=== PATIENT | male | born 1950 | race African-American/Black ===

== ENCOUNTER 2025-01-18 11:49 | Outpatient (AMB) | payer BC, SELFPAY ==
--- NOTE | 2025-01-18 12:22 | A.OFFVIS_ITS ---
Intake Visit Reasons: Parkinsonsim Allergies Penicillins Allergy (Unknown, Verified 01/13/25 15:50) Itching HPI Comments Details: This is a 74-year-old right-handed man with a history of hypertension diabetes and hyperlipidemia for more than 10 years who is here with a 2 year history of cognitive decline with short-term memory problems. In the last 1 year he has also started having shuffling gait and uses a cane at home since June and a walker outside. He has had several falls and tends to lose his balance. He reports some tremor in his hands but no tremors after starting meds. No trouble talking or swallowing. Sometimes he gets lightheaded dizzy. He has become somewhat slower in doing things but is still able to dress himself and take care of his activities of daily living. In July he saw a neurologist in [place] and was diagnosed with Parkinson's disease and started on carbidopa levodopa 25/100 x 3 times a day and physical therapy. He has been noted to be somewhat better with less shuffling and better mobility. No follow-up has been made for that so far. [facility] Medical History (Updated 01/18/25 @ 12:36 by Helena Moncada MD) Internal hemorrhoid Adenocarcinoma of prostate Type 2 diabetes mellitus Primary hypertension Class 1 obesity due to excess calories with body mass index (BMI) of 33.0 to 33.9 in adult Erectile dysfunction COVID-19 Mixed hyperlipidemia Occult blood positive stool Syncope and collapse Partial seizure disorder Surgical History (Updated 01/13/25 @ 15:47 by SINA Zayas) H/O colonoscopy Family History (Updated 01/13/25 @ 15:47 by SINA Zayas) Father Prostate cancer Review of Systems Const Reports frequent falls Eyes Reports blurry vision and Reports diplopia ENT Reports dizziness, Reports hearing loss, Reports neck pain and Reports disequilibrium Musc Reports abnormal gait and Reports neck pain Neuro Reports abnormal gait, Reports dizziness, Reports frequent falls, Reports memory loss, Reports tremor(s) and Reports disequilibrium Psych Reports memory loss Physical Exam Neuro Other: ?Mini Mental Status Exam Level of Consciousness:?Alert.? Orientation:?Knows correct year, month, date, day and season.?Knows correct city, county and state. Knows correct location and floor.? Registration:?Able to register 3 objects.? Attention:?Serial 7's performed accurately.? Recall:?Able to recall 3 out of 3 objects.? Language:?Normal spontaneous speech, fluency, repetition, naming, comprehension, reading, and writing.? Total Score:?30/30.? Neurological Abnormal neurological findings:??Bradykinesia with decreased facial expression. Walks with a walker with shuffling gait. No rigidity or tremor noted. Slowing of rapid alternating movements particularly on the left. MMS Score 20 7/30.? Mental Status:?Alert and oriented X 3 partially to time.?Normal attention, orientation, memory, and affect.? Cranial Nerves:?Pupils are equal, round and reactive to light. Fundoscopy shows normal disc bilaterally. External occular muscles are intact. Visual jeter are full, no ptosis. Face is symmetrical, no facial weakness or droop. Facial sensations are normal. Tongue protrudes in midline. Palate elevates symmetrically. Shoulder shrugging is normal.? Motor Examination:?Normal muscle tone, bulk and strength.?No atrophy or fasciculations.?No drift of the extended upper extremities.?Deep tendon reflexes are 2+.?Plantars are flexor.? Motor Strength:? Proximal Muscles (out of 5):?5 Distal Muscles (out of 5):?5 Neck Flexors (out of 5):?5 Neck Extensors (out of 5):?5 Deltoid (out of 5):?5 Biceps (out of 5):?5 Triceps (out of 5):?5 Serratus Anterior (out of 5):?5 Wrist Extensors (out of 5):?5 APB (out of 5):?5 Finger Spread (out of 5):?5 Ileopsoas (out of 5):?5 Quadriceps (out of 5):?5 Hamstrings (out of 5):?5 Tibialis Anterior (out of 5):?5 Peronei (out of 5):?5 EDB (out of 5):?5 Gastrocnemius (out of 5):?5 Straight Leg Raising:?90 degrees.? Sensory Exam:?Normal light touch, temperature, pinprick, vibration and joint-position sensations.?Rhomberg sign is absent.? Coordination:?No ataxia,?no titubation,?pdyovf-wx-cjkc, zeaz-gfmi-tikv test, and rapid alternating movements were normal.? Gait Exam:?Shuffling with a walker.? Cerebellar Signs:?Wwipew-gf-gdln and wooi-pa-xkxp is normal.?No dysdiadochokinesia.? Extrapyramidal System:?No tremor or?rigidity, reduced facial expressions.?Bradykinesia with bradyphrenia. Speech:?Normal,?no dysphasia or dysarthria.? General Examination GENERAL APPEARANCE:??normal,?in no acute distress?,?normal,?in no acute distress.? HEAD:??normocephalic,?atraumatic.? EYES:??sclera non-icteric,?conjunctiva clear.? EARS:??auditory canal clear,?tympanic membrane intact, clear.? NOSE:??no lesions.? ORAL CAVITY:??gums normal,?mucosa moist,?no lesions.? THROAT:??clear.? NECK/THYROID:??no cervical lymphadenopathy,?thyroid normal,?neck supple, full range of motion,?no carotid bruit.? SKIN:??no rashes,?no significant birthmarks.? HEART:??S1, S2 normal,?no murmurs?,?S1, S2 normal,?no murmurs.? LUNGS:??clear anteriorly and posteriorly?,?clear anteriorly and posteriorly.? CHEST:??no gross rib deformity,?clear to auscultation.? BACK:??normal exam of spine.? MUSCULOSKELETAL:??normal.? EXTREMITIES:??no edema?,?no edema.? PERIPHERAL PULSES:??normal.? PSYCH:??alert, oriented,?cognitive function intact,?cooperative with exam?,?alert, oriented,?cognitive function intact,?cooperative with exam.? Assessment & Plan Assessment & Plan (1) Parkinsonian syndrome: Code(s): G20 - Parkinson's disease Category: Medical (2) MCI (mild cognitive impairment) with memory loss: Code(s): G31.84 - Mild cognitive impairment of uncertain or unknown etiology Category: Medical Plan MMSE and MOCA in office with VR; MRI brain. Continue Carbidopa -Levodopa. Orders: Orders MR head/brain wo con 3 Weeks G20 - Parkinson's disease, G31.84 - Mild cognitive impairment of uncertain or unknown etiology Coding Level of Care Code New Pt Level 5 (04712) Diagnoses Parkinsonian syndrome G20 MCI (mild cognitive impairment) with memory loss G31.84
--- OUTSIDE RECORDS SUMMARY | 2025-01-18 15:11 | XMS_ITS | Encounter Summary ---
Author Organization [facility] Address [address] [place] [address] Care Team Providers Care Platform Supervisor Name Role Phone Scott Cooper MD Primary Care Provider [phone] Encounter Details Date Type Department Care Team (Late st Contact Info) Description 09/04/2024 Lab Requisition [facility] - Main Lab [address] [facility] [place] [address] Jonh Benitez MD [address] [place] [id number] Urinary tract infection, site not specified Social History Tobacco Use Types Packs/Day Years Used Date Smoking Tobacco: Never Smokeless Tobacco: Never Alcohol Use Standard Drinks/Week Comments No 0 (1 standard drink = 0.6 oz pur e alcohol) Health Literacy Answer Date Recorded How often do you need to hav e someone help you when you read instructions, pamphlets, or other written material from your doctor or pharmacy? Often 07/26/2024 Caregiver: How often do you need to have someone help you when you read instructions, pamphlets, or other written material from your doctor or pharmacy? Not on file 07/26/2024 Transportation Answer Date Recorded Has the lack of transportati on kept you from meetings, work, or from getting things needed for daily living? No Has the lack of transportati on kept you from medical appointments or from getting medications? No 07/11/2024 Social Isolation Answer Date Recorded How often do you feel lonely or isolated from th ose around you? Never 07/27/2024 Food Risk Answer Date Recorded Within the past 12 months we worried whether our food would run out before we got money to buy more. Never true 07/15/2024 Within the past 12 months th e food we bought just didn't last and we didn't have money to get more. Never true 07/15/2024 Interpersonal Safety Answer Date Record ed Physical Abuse Unrecognized value 07/18/2024 Verbal Abuse Unrecognized value 07/18/2024 Sex and Gender Information Value Date Recorded Sex Assigned at Male 06/07/2024 3:25 PM EDT Legal Sex Male 8:48 PM EST Gender Identity Male 06/07/2024 3:25 PM EDT Sexual Orientation Straight 06/07/2024 3: 25 PM EDT documented as of this encounter Functional Status * Are you deaf or do you have serious difficulty hearing? Answer Date of Assessment Author No 06/10/2024 4:24 PM EDT Marion Aponte RN * Are you blind or do you have serious difficulty seeing, even when wearing glasses? Answer Date of Assessment Author No 06/10/2024 4:24 PM EDT Marion Aponte RN * Do you have serious difficulty walking or climbing stairs? Answer Date of Assessment Author No 06/10/2024 4:24 PM EDT Marion Aponte RN * Do you have serious difficulty dressing or bathing? Answer Date of Assessment Author No 06/10/2024 4:24 PM EDT Marion Aponte RN * Because of a physical, mental, or emotional condition, do you have serious difficulty doing errandsalone such as visiting the doctor? Answer Date of Assessment Author No 06/10/2024 4:24 PM EDT Marion Aponte RN documented as of this encounter Mental Status * Because of a physical, mental, or emotional condition, do you have serious difficulty concentrating, remembering, or making decisions? (5 years old or older) Answer Entry Date Author No 06/10/2024 4:24 PM EDT Marion Aponte RN documented in this encounter Plan of Treatment Upcoming Encounters Date Type Department Care Team (Late st Contact Info) Description 02/10/2025 2:30 PM EST Office Visit Endocrinology - [facility] [place], [place] [phone] Sobeida Hoff PA [address] [place] [address] 02/13/2025 3:15 PM EST Office Visit Internal Medicine - [address] [phone] Scott Cooper MD [address] [place] [address] documented as of this encounter Procedures Procedure Name Priority Date/Time Associated Diagnosis Comments URINALYSIS WITH REFLEX MICROSCOPIC AND CULTURE Routine 09/03/2024 2:00 PM EDT Urinary tract infection, site not specified LYMAN URINE CULTURE TUBE Routine 09/03/2024 2:00 PM EDT Urinary tract infection, site not specified URINALYSIS WITH REFLEX MICROSCOPIC AND CULTURE Routine 09/03/2024 2:00 PM EDT Urinary tract infection, site not specified CULTURE URINE Routine 09/03/2024 2:00 PM EDT Urinary tract infection, site not specified documented in this encounter Results * Culture urine (09/03/2024 2:00 PM EDT) Culture, Urine <10,000 CFU/mL gram negative bacilli, insignificant count, no further workup 09/05/2024 12:40 PM EDT [facility] Urine Urine specimen obtained by clean catch procedure / Unknown Non-blood Collection / Unknown 09/03/2024 2:00 PM EDT 09/04/2024 10:22 AM EDT us Jonh Benitez MD LAB MICROBIOLOGY - GENERAL FRANK BREWER Final Result [facility] [address] [place] [address], [place] [phone] * (ABNORMAL) Urinalysis with reflex microscopic and culture (09/03/2024 2:00 PM EDT) Specific [place] Urine 1.018 1.003 - 1.030 LAB URINALYSIS - AUTOMATED METHOD 09/04/2024 10:22 AM [facility] pH, Urine 6.0 5.0 - 8.0 pH LAB URINALYSIS - AUTOMATED METHOD 09/04/2024 10:22 AM [facility] Leukocytes, Urine Small(A) Negative LAB URINALYSIS - AUTOMATED METHOD 09/04/2024 10:22 AM [facility] Nitrite, Urine Negative Negative LAB URINALYSIS - AUTOMATED METHOD 09/04/2024 10:22 AM [facility] Protein, Urine Trace <=Trace mg/dL LAB URINALYSIS - AUTOMATED METHOD 09/04/2024 10:22 AM [facility] Glucose, Urine Negative Negative mg/dL LAB URINALYSIS - AUTOMATED METHOD 09/04/2024 10:22 AM [facility] Ketones, Urine Trace(A) Negative mg/dL LAB URINALYSIS - AUTOMATED METHOD 09/04/2024 10:22 AM [facility] Urobilinogen, Urine 1.0 0.2 - 1.0 mg/dL LAB URINALYSIS - AUTOMATED METHOD 09/04/2024 10:22 AM [facility] Bilirubin, Urine Small(A) Negative LAB URINALYSIS - AUTOMATED METHOD 09/04/2024 10:22 AM [facility] Blood, Urine Negative Negative LAB URINALYSIS - AUTOMATED METHOD 09/04/2024 10:22 AM [facility] RBC, Urine 1.3 0 - 4 /HPF LAB URINALYSIS - AUTOMATED METHOD 09/04/2024 10:22 AM [facility] WBC, Urine 11.9(H) 0 - 4 /HPF LAB URINALYSIS - AUTOMATED METHOD 09/04/2024 10:22 AM EDT [facility] Squamous Epithelial, Urine 49 0 - 60 /LPF LAB URINALYSIS - AUTOMATED METHOD 09/04/2024 10:22 AM EDT [facility] Bacteria, Urine Negative Negative /HPF LAB URINALYSIS - AUTOMATED METHOD 09/04/2024 10:22 AM EDT [facility] Hyaline Casts, Urine 10.8(H) 0 - 3 /LPF LAB URINALYSIS - AUTOMATED METHOD 09/04/2024 10:22 AM EDT [facility] Urine Urine specimen obtained by clean catch procedure / Unknown Non-blood Collection / Unknown 09/03/2024 2:00 PM EDT 09/04/2024 9:08 AM EDT us Jonh Benitez MD LAB URINE ORDERABLES Final Resu lt Performing Organization Address City/[facility]/ZIP Co de Phone Number [facility] [address] [place] [address], [place] [phone] * Lyman urine culture tube (09/03/2024 2:00 PM EDT) Extra Tube Hold for add-ons. 09/05/2024 10:01 AM EDT [facility] Comment:Auto resulted. Urine Urine specimen obtained by clean catch procedure / Unknown Non-blood Collection / Unknown 09/03/2024 2:00 PM EDT 09/04/2024 9:08 AM EDT us Jonh Benitez MD LAB URINE ORDERABLES Final Resu lt Performing Organization Address [facility]/ZIP Co de Phone Number [facility] [address] [place] [address], [place] [phone] documented in this encounter Visit Diagnoses Diagnosis Urinary tract infection, site not specified documented in this encounter Additional Health Concerns Assessment Noted Time PHQ-9 Depression Total Score: 0 07/28/19 9:05 AM EDT documented as of this encounter Care Teams Platform Supervisor Relationship Specialty Start Date End Date Scott Cooper MD [address] [place] [address] PCP - General Internal Medicine 04/05/24 documented as of this encounter
--- OUTSIDE RECORDS SUMMARY | 2025-01-18 15:11 | XMS_ITS | Encounter Summary ---
Author Organization [facility] Address [address] [place] [address] Care Team Providers Care Manager Safe Name Role Phone Scott Cooper MD Primary Care Provider [phone] Encounter Details Date Type Department Care Team (Late st Contact Info) Description 09/07/2024 Lab Requisition [facility] - Main Lab [address] [facility] [place] [address] Jonh Benitez MD [address] [place] [id number] Encounter for other general examination Social History Tobacco Use Types Packs/Day Years [...] 2:30 PM EST Office Visit Endocrinology - [place] [address] [place], [place] [phone] Sobeida Hoff PA [address] [place] [address] 02/13/2025 3:15 PM EST Office Visit Internal Medicine - [address] [phone] Scott Cooper MD [address] [place] [address] documented as of this encounter Procedures Procedure Name Priority Date/Time Associated Diagnosis Comments VITAMIN D 25 HYDROXY Routine 09/07/2024 4:53 AM EDT Encounter for other general examination THYROID STIMULATING HORMONE Routine 09/07/2024 4:53 AM EDT Encounter for other general examination VITAMIN B12 Routine 09/07/2024 4:53 AM EDT Encounter for other general examination COMPREHENSIVE METABOLIC PANEL Routine 09/07/2024 4:53 AM EDT Encounter for other general examination documented in this encounter Results * Thyroid stimulating hormone (09/07/2024 4:53 AM EDT) TSH 2.08 0.40 - 4.00 mcIU/mL LAB CHEMISTRY METHOD 09/07/2024 11:47 AM EDT [facility] Blood Venous blood specimen / Unknown Venipuncture / Unknown 09/07/2024 4:53 AM EDT 09/07/2024 9:23 AM EDT us Jonh Benitez MD LAB BLOOD ORDERABLES Final Resu lt [facility] [address] [place] [address], * Vitamin D 25 hydroxy (09/07/2024 4:53 AM EDT) Vit D, 25-Hydroxy 45.3 30.0 - 80.0 ng/mL LAB CHEMISTRY METHOD 09/07/2024 11:47 AM EDT [facility] Blood Venous blood specimen / Unknown Venipuncture / Unknown 09/07/2024 4:53 AM EDT 09/07/2024 9:23 AM EDT Jonh Benitez MD LAB BLOOD ORDERABLES Final Resu lt [facility] [address] [place] [address], [place] [phone] * Vitamin B12 (09/07/2024 4:53 AM EDT) Pathologist [facility] [place] Vitamin B-12 636 250 - 900 pcg/mL LAB CHEMISTRY METHOD 09/07/2024 11:24 AM EDT [facility] Blood Venous blood specimen / Unknown Venipuncture / Unknown 09/07/2024 4:53 AM EDT 09/07/2024 9:23 AM EDT Jonh Benitez MD LAB BLOOD ORDERABLES Final Resu lt [facility] [address] [place] [address], [place] [phone] * Comprehensive metabolic panel (09/07/2024 4:53 AM EDT) Pathologist [facility] [place] Sodium 138 133 - 145 mmol/L LAB CHEMISTRY METHOD 09/07/2024 11:25 AM EDT [facility] Potassium 4.3 3.5 - 5.5 mmol/L LAB CHEMISTRY METHOD 09/07/2024 11:25 AM EDT [facility] Chloride 102 96 - 110 mmol/L LAB CHEMISTRY METHOD 09/07/2024 11:25 AM EDT [facility] CO2 31 21 - 32 mmol/L LAB CHEMISTRY METHOD 09/07/2024 11:25 AM [facility] Anion Gap 5 3 - 11 LAB CHEMISTRY METHOD 09/07/2024 11:25 AM [facility] Glucose 92 70 - 100 mg/dL LAB CHEMISTRY METHOD 09/07/2024 11:25 AM [facility] BUN 16 5 - 25 mg/dL LAB CHEMISTRY METHOD 09/07/2024 11:25 AM [facility] Creatinine 0.82 0.70 - 1.30 mg/dL LAB CHEMISTRY METHOD 09/07/2024 11:25 AM [facility] eGFR 93 >=60 mL/min/1. 73m2 LAB CHEMISTRY METHOD 09/07/2024 11:25 AM [facility] Comment:Calculation based on the Chronic Kidney Disease Epidemiology Collaboration (CKD-EPI) equation refit without adjustment for race. BUN/Creatinine Ratio 19.5 LAB CHEMISTRY METHOD 09/07/2024 11:25 AM [facility] Calcium 9.4 8.5 - 10.5 mg/dL LAB CHEMISTRY METHOD 09/07/2024 11:25 AM [facility] AST (SGOT) 37 10 - 42 unit/L LAB CHEMISTRY METHOD 09/07/2024 11:25 AM [facility] ALT (SGPT) 40 10 - 60 unit/L LAB CHEMISTRY METHOD 09/07/2024 11:25 AM [facility] Alkaline Phosphatase 104 42 - 121 unit/L LAB CHEMISTRY METHOD 09/07/2024 11:25 AM [facility] Total Protein 6.4 6.0 - 8.0 g/dL LAB CHEMISTRY METHOD 09/07/2024 11:25 AM [facility] Albumin 3.3 3.2 - 5.0 g/dL LAB CHEMISTRY METHOD 09/07/2024 11:25 AM EDT [facility] Total Bilirubin 0.5 0.0 - 1.4 mg/dL LAB CHEMISTRY METHOD 09/07/2024 11:25 AM EDT [facility] Blood Venous blood specimen / Unknown Venipuncture / Unknown 09/07/2024 4:53 AM EDT 09/07/2024 9:23 AM EDT us Jonh Benitez MD LAB BLOOD ORDERABLES Final Resu lt [facility] [address] [place] [address], documented in this encounter Visit Diagnoses Diagnosis Encounter for other general examination documented in this encounter Additional Health Concerns Assessment Noted Time PHQ-9 Depression Total Score: 0 07/28/19 9:05 AM EDT documented as of this encounter Care Teams Manager Safe Relationship Specialty Start Date End Date Scott Cooper MD [address] [place] [address] PCP - General Internal Medicine 04/05/24 documented as of this encounter
--- OUTSIDE RECORDS SUMMARY | 2025-01-18 15:11 | XMS_ITS | Continuity of Care Document ---
Author Organization [facility] Address [address] [address] [place] [address] Phone [phone] Care Team Providers Care Client Experience Specialist Name Role Phone Scott Cooper M.D. Care Team Information Receive r [phone] Problems Active Problems Provider Date Diabetes mellitus Nick Machado M.D. Onset: 01/30/2022 Essential hypertension Nick Machado M.D. O nset: 01/30/2022 Social History Type Date Description Comments Sex Male Sex Unknown Lives With Daughter ETOH Use Denies alcohol use Tobacco Use Start: Unknown Patient has never smoked Allergies and adverse reactions Active Allergies Criticality Reaction Severity Comments Date Penicillin Unable to assess criticality 01/30/2022 Medications Active Medications SIG Qnty Indications Order ing Provider Date Olmesartan [id number] Tablets 1 by mouth twice per day Nick Machado M.D. 09/03/2022 Amlodipine [id number] Tablets 1 by mouth every day 90tabs Nick Machado M.D. 09/03/2022 Accu-Chek Fastclix LancetsMisc use 1 lancet 2 times a day 204units E11.9 Nick Machado M.D. 11/08/2021 Accu-Chek SmartviewStrips Use Twice Daily To Test BS as Directed 200units Nick Machado M.D. Atorvastatin Dqlsgej93pb Tablets Take 1 Tablet By Mouth Every Day Unknown [id number] Tablets Take 1 Tablet By Mouth Every Day Moe Haywood Metformin [id number] Tablets Take 2 Tablets By Mouth Twice A Day With Meals Unknown Vital Signs Date Vital Result Comment 09/03/2022 10:39am Height 73 inches 6'1 Weight 250.00 lb BMI (Body Mass Index) 33.0 kg/m2 Results Test Acquired Date Facility Test Result H/L Range Note Comprehensive Metabolic Panl 09/03/2022 [facility] Glucose 221 mg/dL High (70-99) BUN 16 mg/dL (8-23) Creatinine 1.1 mg/dL (0.7-1.2 ) Sodium 140 mmol/L (133-145 ) Potassium 4.3 mmol/L (3.6-5.2 ) Chloride 103 mmol/L (98-107) Bicarbonate 26 mmol/L (22-29) Anion Gap 11 (4-17) Albumin 4.4 GM/DL (3.4-4.8 ) Calcium 9.9 mg/dL (8.6-10. 5) Bilirubin,Total 0.5 mg/dL (0-1.2 ) Total Protein 6.9 GM/DL (6.2-8.2 ) Ag Ratio 1.8 Ast 14 U/L (0-40) Alk Phos 110 U/L (40-129) Alt 17 U/L (0-41) Estimated GFR Creatinine 75 ML/MIN/1.7 3M2 1 Complete Abc With Diff 09/03/2022 [facility] WBC 7.0 K/MM3 (4.0-11. 0) RBC 4.51 M/MM3 Low (4.70-6. 10) HGB 13.8 GM/DL (13.7-17 .1) HCT 39.1 % Low (40.5-50 .0) MCV 86.7 FL (80.0-94 .0) MCH 30.6 pg (27.0-34 .0) MCHC 35.3 g/dL (33.0-37 .0) PLT 232 K/MM3 (150-460 ) RDW-SD 42.8 FL (<47.0) MPV 10.1 FL (9.4-12. 4) Automated NRBC 0.0 #/100WBC'S Abs. NRBC 0.0 K/MM3 Neut # 4.2 K/MM3 (1.3-7.0 ) Lymph # 2.1 K/MM3 (0.8-3.1 ) Castro# 0.5 K/MM3 (0.4-1.3 ) Eo # 0.1 K/MM3 (0.0-0.4 ) Baso # 0.0 K/MM3 (0.0-0.1 ) Abs. Imm Gran 0.0 K/MM3 Neut 60.2 % (44-76) Lymph 29.6 % (15-43) Monocyte 7.6 % (4.5-10. 5) Eo 1.9 % (0-6) Baso 0.6 % (0-2) Imm Gran 0.1 % TSH With Reflex To FT4 09/03/2022 [facility] TSH With Reflex To FT4 1.90 uIU/mL (0.4-4.2 ) Hemoglobin A1c 09/03/2022 Inhouse Hemoglobin A1c 6.8% Glucose Fingerstick 09/03/2022 Inhouse Glucose Fingerstick 233 Hemoglobin A1c 05/05/2022 Inhouse Hemoglobin A1c 6.5% Glucose Fingerstick 05/05/2022 Inhouse Glucose Fingerstick 263 Comprehensive Metabolic Panl 01/30/2022 [facility] Glucose 144 mg/dL High (70-99) BUN 16 mg/dL (8-23) Creatinine 1.1 mg/dL (0.7-1.2 ) Sodium 141 mmol/L (133-145 ) Potassium 3.8 mmol/L (3.6-5.2 ) Chloride 102 mmol/L (98-107) Bicarbonate 29 mmol/L (22-29) Anion Gap 10 (4-17) Albumin 4.5 GM/DL (3.4-4.8 ) Calcium 9.8 mg/dL (8.6-10. 5) Bilirubin,Total 0.5 mg/dL (0-1.2 ) Total Protein 7.2 GM/DL (6.2-8.2 ) Ag Ratio 1.7 Ast 16 U/L (0-40) Alk Phos 112 U/L (40-129) Alt 18 U/L (0-41) Estimated GFR Creatinine 69 ML/MIN/1.7 3M2 2 Complete Abc With Diff 01/30/2022 [facility] WBC 8.8 K/MM3 (4.0-11. 0) RBC 4.87 M/MM3 (4.70-6. 10) HGB 14.5 GM/DL (13.7-17 .1) HCT 42.7 % (40.5-50 .0) MCV 87.7 FL (80.0-94 .0) MCH 29.8 pg (27.0-34 .0) MCHC 34.0 g/dL (33.0-37 .0) PLT 225 K/MM3 (150-460 ) RDW-SD 46.5 FL (<47.0) MPV 11.4 FL (9.4-12. 4) Automated NRBC 0.0 #/100WBC'S Abs. NRBC 0.0 K/MM3 Neut # 6.5 K/MM3 (1.3-7.0 ) Lymph # 1.6 K/MM3 (0.8-3.1 ) Castro# 0.6 K/MM3 (0.4-1.3 ) Eo # 0.1 K/MM3 (0.0-0.4 ) Baso # 0.0 K/MM3 (0.0-0.1 ) Abs. Imm Gran 0.0 K/MM3 Neut 74.0 % (44-76) Lymph 17.6 % (15-43) Monocyte 7.1 % (4.5-10. 5) Eo 0.9 % (0-6) Baso 0.3 % (0-2) Imm Gran 0.1 % TSH With Reflex To FT4 01/30/2022 [facility] TSH With Reflex To FT4 2.62 uIU/mL (0.4-4.2 ) Glucose Fingerstick 01/30/2022 Inhouse Glucose Fingerstick 148 Hemoglobin A1c 01/30/2022 Inhouse Hemoglobin A1c 6.5% 1 Creatinine based est imated glomerular filtration (eGFR) in adults is calculated using the [employer] recommended 2020 CKD-EPI equation. Estimates GFR from serum creatinine, age and sex. 2 Creatinine based est imated glomerular filtration (eGFR) in adults is calculated using the [employer] recommended 202 CKD-EPI equation. Estimates GFR from serum creatinine, age and sex. Medical Devices Description No Information Available Encounters Type Date Location Provider Dx Diagnosis Office Visit 09/03/2022 10:30a Main Office Nick Machado M.D. I10 Essential (primary) hypertension E11.9 Type 2 diabetes vincenzo itus without complications R42 Dizziness and giddin ess Assessments Date Code Description Provider 09/03/2022 I10 Essential (primary) hyperten beka Nick Machado M.D. 09/03/2022 E11.9 Type 2 diabetes mellitus without complications Nick Machado M.D. 09/03/2022 R42 Dizziness and giddiness Nick Machado M.D. Plan of Treatment 09/03/2022 - Nick Machado M.D.* I10 Essential (primary) hypertension * E11.9 Type 2 diabetes mellitus without complications * R42 Dizziness and giddiness * Functional Status Description No Information Available Mental Status Description No Information Available Referrals Description No Information Available
--- OUTSIDE RECORDS SUMMARY | 2025-01-18 15:11 | XMS_ITS | Encounter Summary ---
Author Organization [facility] Address [address] [place] [address] Care Team Providers Care Site Administrator Name Role Phone Scott Cooper MD Primary Care Provider [phone] Encounter Details Date Type Department Care Team (Late st Contact Info) Description 09/04/2024 Lab Requisition [facility] - Main Lab [address] [facility] [place] [address] Jonh Benitez MD [address] [place] [address] Encounter for other general examination Social History [...] 2:30 PM EST Office Visit Endocrinology - [place] [address] [place], [place] [phone] Sobeida Hoff PA [address] [place] [address] 02/13/2025 3:15 PM EST Office Visit Internal Medicine - [address] [phone] Scott Cooper MD [address] [place] [address] documented as of this encounter Procedures Procedure Name Priority Date/Time Associated Diagnosis Comments MANUAL DIFFERENTIAL - SYSMEX WAM Routine 09/04/2024 6:31 AM EDT Encounter for other general examination CBC WITH AUTO DIFFERENTIAL Routine 09/04/2024 6:31 AM EDT Encounter for other general examination CBC AND DIFFERENTIAL Routine 09/04/2024 6:31 AM EDT Encounter for other general examination MAGNESIUM Routine 09/04/2024 6:31 AM EDT Encounter for other general examination COMPREHENSIVE METABOLIC PANEL Routine 09/04/2024 6:31 AM EDT Encounter for other general examination documented in this encounter Results * (ABNORMAL) Manual differential (09/04/2024 6:31 AM EDT) Neutrophils % 61.0 % LAB HEMETOLOGY METHOD 09/04/2024 10:32 AM EDT [facility] Lymphocytes % 24.0 % LAB HEMETOLOGY METHOD 09/04/2024 10:32 AM EDT [facility] Monocytes % 12.0 % LAB HEMETOLOGY METHOD 09/04/2024 10:32 AM EDT [facility] Eosinophils % 2.0 % LAB HEMETOLOGY METHOD 09/04/2024 10:32 AM [facility] Basophils % 1.0 % LAB HEMETOLOGY METHOD 09/04/2024 10:32 AM [facility] Myelocytes % 1.0(H) % LAB HEMETOLOGY METHOD 09/04/2024 10:32 AM [facility] Neutrophils Absolute Manual 4.33 1.50 - 7.00 K/mcL LAB HEMETOLOGY METHOD 09/04/2024 10:32 AM [facility] Lymphocytes Absolute 1.70 1.00 - 5.00 K/mcL LAB HEMETOLOGY METHOD 09/04/2024 10:32 AM [facility] Monocytes Absolute Manual 0.85 0.20 - 1.00 K/mcL LAB HEMETOLOGY METHOD 09/04/2024 10:32 AM [facility] Eosinophils Absolute Manual 0.14 0.00 - 0.50 K/mcL LAB HEMETOLOGY METHOD 09/04/2024 10:32 AM [facility] Basophils Absolute Manual 0.07 0.00 - 0.20 K/mcL LAB HEMETOLOGY METHOD 09/04/2024 10:32 AM [facility] Myelocytes Absolute Manual 0.07(H) 0.00 - 0.00 K/mcL LAB HEMETOLOGY METHOD 09/04/2024 10:32 AM [facility] Rbc Morphology Consistent with indices Consistent with indices, Normal for LAB HEMETOLOGY METHOD 09/04/2024 10:32 AM [facility] Comment:RBC: Morphology agre es with CBC Platelet Morphology - WAM See Note(A) Normal LAB HEMETOLOGY METHOD 09/04/2024 10:32 AM [facility] Comment:PLT: Normal Blood Venous blood specimen / Unknown Venipuncture / Unknown 09/04/2024 6:31 AM EDT 09/04/2024 8:53 AM EDT us Jonh Benitez MD LAB BLOOD ORDERABLES Final Resu lt [facility] [address] [place] [address], * (ABNORMAL) CBC auto differential (09/04/2024 6:31 AM EDT) WBC 7.1 4.8 - 10.8 K/mcL LAB HEMETOLOGY METHOD 09/04/2024 10:32 AM EDT [facility] RBC 3.50(L) 4.50 - 5.50 M/mcL LAB [facility] Hemoglobin 10.3(L) 13.5 - 17.5 g/dL LAB HEMETOLOGY METHOD 09/04/2024 10:32 AM T [facility] Hematocrit 29.8(L) 42.0 - 54.0 % LAB HEMETOLOGY METHOD 09/04/2024 10:32 AM EDT [facility] MCV 84.9 79.0 - 98.0 FL LAB HEMETOLOGY METHOD 09/04/2024 10:32 AM EDT [facility] MCH 29.3 27.0 - 32.0 pcg LAB HEMETOLOGY METHOD 09/04/2024 10:32 AM EDT [facility] MCHC 34.6 32.0 - 37.0 g/dL LAB HEMETOLOGY METHOD 09/04/2024 10:32 AM EDT [facility] RDW 14.6 11.0 - 15.0 % LAB HEMETOLOGY METHOD 09/04/2024 10:32 AM [facility] Platelets 247 130 - 400 K/mcL LAB HEMETOLOGY METHOD 09/04/2024 10:32 AM EDT [facility] MPV 10.1 7.0 - 11.0 FL LAB HEMETOLOGY METHOD 09/04/2024 10:32 AM EDT [facility] NRBC 0.0 <1.0 % LAB HEMETOLOGY METHOD 09/04/2024 10:32 AM EDT [facility] NRBC Absolute 0.00 <0.10 K/mcL LAB HEMETOLOGY METHOD 09/04/2024 10:32 AM EDT [facility] Blood Venous blood specimen / Unknown Venipuncture / Unknown 09/04/2024 6:31 AM EDT 09/04/2024 8:53 AM EDT Jonh Benitez MD LAB BLOOD ORDERABLES Final Resu lt Performing Organization Address [facility]/ZIP Co de Phone Number [facility] [address] [place] [address], * Magnesium (09/04/2024 6:31 AM EDT) Magnesium 1.9 1.9 - 2.6 mg/dL LAB CHEMISTRY METHOD 09/04/2024 10:59 AM EDT [facility] Blood Venous blood specimen / Unknown Venipuncture / Unknown 09/04/2024 6:31 AM EDT 09/04/2024 8:53 AM EDT Jonh Benitez MD LAB BLOOD ORDERABLES Final Resu lt [facility] [address] [place] [address], [place] [phone] * (ABNORMAL) Comprehensive metabolic panel (09/04/2024 6:31 AM EDT) Sodium 138 133 - 145 mmol/L LAB CHEMISTRY METHOD 09/04/2024 11:08 AM EDT [facility] Potassium 4.2 3.5 - 5.5 mmol/L LAB CHEMISTRY METHOD 09/04/2024 11:08 AM [facility] Chloride 103 96 - 110 mmol/L LAB CHEMISTRY METHOD 09/04/2024 11:08 AM [facility] CO2 30 21 - 32 mmol/L LAB CHEMISTRY METHOD 09/04/2024 11:08 AM [facility] Anion Gap 5 3 - 11 LAB CHEMISTRY METHOD 09/04/2024 11:08 AM [facility] Glucose 110(H) 70 - 100 mg/dL LAB CHEMISTRY METHOD 09/04/2024 11:08 AM [facility] BUN 14 5 - 25 mg/dL LAB CHEMISTRY METHOD 09/04/2024 11:08 AM [facility] Creatinine 0.84 0.70 - 1.30 mg/dL LAB CHEMISTRY METHOD 09/04/2024 11:08 AM [facility] eGFR 92 >=60 mL/min/1. 73m2 LAB CHEMISTRY METHOD 09/04/2024 11:08 AM [facility] Comment:Calculation based on the Chronic Kidney Disease Epidemiology Collaboration (CKD-EPI) equation refit without adjustment for race. BUN/Creatinine Ratio 16.7 LAB CHEMISTRY METHOD 09/04/2024 11:08 AM [facility] Calcium 9.1 8.5 - 10.5 mg/dL LAB CHEMISTRY METHOD 09/04/2024 11:08 AM [facility] AST (SGOT) 66(H) 10 - 42 unit/L LAB CHEMISTRY METHOD 09/04/2024 11:08 AM [facility] ALT (SGPT) 20 10 - 60 unit/L LAB CHEMISTRY METHOD 09/04/2024 11:08 AM [facility] Alkaline Phosphatase 98 42 - 121 unit/L LAB CHEMISTRY METHOD 09/04/2024 11:08 AM [facility] Total Protein 6.1 6.0 - 8.0 g/dL LAB CHEMISTRY METHOD 09/04/2024 11:08 AM EDT [facility] Albumin 3.0(L) 3.2 - 5.0 g/dL LAB CHEMISTRY METHOD 09/04/2024 11:08 AM EDT [facility] Total Bilirubin 0.6 0.0 - 1.4 mg/dL LAB CHEMISTRY METHOD 09/04/2024 11:08 AM EDT [facility] Blood Venous blood specimen / Unknown Venipuncture / Unknown 09/04/2024 6:31 AM EDT 09/04/2024 8:53 AM EDT us Jonh Benitez MD LAB BLOOD ORDERABLES Final Resu lt [facility] [address] [place] [address], documented in this encounter Visit Diagnoses Diagnosis Encounter for other general examination documented in this encounter Additional Health Concerns Assessment Noted Time PHQ-9 Depression Total Score: 0 07/28/19 25 9:05 AM EDT documented as of this encounter Care Teams Site Administrator Relationship Specialty Start Date End Date Scott Cooper MD [address] [place] [id number] PCP - General Internal Medicine 04/05/24 documented as of this encounter
--- OUTSIDE RECORDS SUMMARY | 2025-01-18 15:11 | XMS_ITS | Encounter Summary ---
Author Organization [facility] Address [address] [place] [address] Care Team Providers Care Choke Setter Name Role Phone Scott Cooper MD Primary Care Provider [phone] Encounter Details Date Type Department Care Team (Late st Contact Info) Description 09/01/2024 Lab Requisition [facility] - Main Lab [address] [facility] [place] [address] Jonh Benitez MD [address] [place] [address] Encounter for other general examination Social History [...] Date Author No 06/10/2024 4:24 PM EDT Migel Aponte RN documented in this encounter Plan of Treatment Upcoming Encounters Date Type Department Care Team (Late st Contact Info) Description 02/10/2025 2:30 PM EST Office Visit Endocrinology - [place] [address] [place], [place] [phone] Sobeida Hoff PA [address] [place] [address] 02/13/2025 3:15 PM EST Office Visit Internal Medicine - [address] [phone] Scott Cooper MD [address] [place] [address] documented as of this encounter Procedures Procedure Name Priority Date/Time Associated Diagnosis Comments CBC WITH AUTO DIFFERENTIAL Routine 09/01/2024 6:04 AM EDT Encounter for other general examination CBC AND DIFFERENTIAL Routine 09/01/2024 6:04 AM EDT Encounter for other general examination MAGNESIUM Routine 09/01/2024 6:04 AM EDT Encounter for other general examination COMPREHENSIVE METABOLIC PANEL Routine 09/01/2024 6:04 AM EDT Encounter for other general examination documented in this encounter Results * (ABNORMAL) CBC auto differential (09/01/2024 6:04 AM EDT) WBC 6.3 4.8 - 10.8 K/mcL LAB HEMETOLOGY METHOD 09/01/2024 9:57 AM EDT [facility] RBC 3.80(L) 4.50 - 5.50 M/mcL LAB HEMETOLOGY METHOD 09/01/2024 9:57 AM EDT [facility] Hemoglobin 11.4(L) 13.5 - 17.5 g/dL LAB HEMETOLOGY METHOD 09/01/2024 9:57 AM EDT [facility] Hematocrit 32.3(L) 42.0 - 54.0 % LAB HEMETOLOGY METHOD 09/01/2024 9:57 AM [facility] MCV 84.1 79.0 - 98.0 FL LAB HEMETOLOGY METHOD 09/01/2024 9:57 AM [facility] MCH 29.7 27.0 - 32.0 pcg LAB HEMETOLOGY METHOD 09/01/2024 9:57 AM [facility] MCHC 35.3 32.0 - 37.0 g/dL LAB HEMETOLOGY METHOD 09/01/2024 9:57 AM [facility] RDW 14.9 11.0 - 15.0 % LAB HEMETOLOGY METHOD 09/01/2024 9:57 AM [facility] Platelets 190 130 - 400 K/mcL LAB HEMETOLOGY METHOD 09/01/2024 9:57 AM [facility] MPV 10.1 7.0 - 11.0 FL LAB HEMETOLOGY METHOD 09/01/2024 9:57 AM [facility] NRBC 0.0 <1.0 % LAB HEMETOLOGY METHOD 09/01/2024 9:57 AM [facility] NRBC Absolute 0.00 <0.10 K/mcL LAB HEMETOLOGY METHOD 09/01/2024 9:57 AM [facility] Neutrophils Relative 66.7 % LAB HEMETOLOGY METHOD 09/01/2024 9:57 AM [facility] Comment:This is an appended report. These results have been appended to a previously preliminary verified report. Lymphocytes Relative 17.4 % LAB HEMETOLOGY METHOD 09/01/2024 9:57 AM [facility] Comment:This is an appended report. These results have been appended to a previously preliminary verified report. Monocytes Relative 11.4 % LAB HEMETOLOGY METHOD 09/01/2024 9:57 AM [facility] Comment:This is an appended report. These results have been appended to a previously preliminary verified report. Eosinophils Relative 2.7 % LAB HEMETOLOGY METHOD 09/01/2024 9:57 AM [facility] Comment:This is an appended report. These results have been appended to a previously preliminary verified report. Basophils Relative 0.5 % LAB HEMETOLOGY METHOD 09/01/2024 9:57 AM [facility] Comment:This is an appended report. These results have been appended to a previously preliminary verified report. Immature Granulocytes Relative 1.3 % LAB HEMETOLOGY METHOD 09/01/2024 9:57 AM [facility] Comment:This is an appended report. These results have been appended to a previously preliminary verified report. Neutrophils Absolute 4.24 1.50 - 7.00 K/mcL [facility] 9:57 AM [facility] Comment:This is an appended report. These results have been appended to a previously preliminary verified report. Lymphocytes Absolute 1.10 1.00 - 5.00 K/mcL [facility] 09/01/2024 9:57 AM [facility] Comment:This is an appended report. These results have been appended to a previously preliminary verified report. Monocytes Absolute 0.72 0.20 - 1.00 K/mcL LAB HEMETOLOGY METHOD 09/01/2024 9:57 AM [facility] Comment:This is an appended report. These results have been appended to a previously preliminary verified report. Eosinophils Absolute 0.17 0.00 - 0.50 K/mcL LAB HEMETOLOGY METHOD 09/01/2024 9:57 AM [facility] Comment:This is an appended report. These results have been appended to a previously preliminary verified report. Basophils Absolute 0.03 0.00 - 0.20 K/mcL LAB HEMETOLOGY METHOD 09/01/2024 9:57 AM [facility] Comment:This is an appended report. These results have been appended to a previously preliminary verified report. Immature Granulocytes Absolute 0.08(H) 0.00 - 0.03 K/mcL LAB HEMETOLOGY METHOD 09/01/2024 9:57 AM EDT [facility] Comment:This is an appended report. These results have been appended to a previously preliminary verified report. Blood Venous blood specimen / Unknown Venipuncture / Unknown 09/01/2024 6:04 AM EDT 09/01/2024 8:28 AM EDT Jonh Benitez MD LAB BLOOD ORDERABLES Final Resu lt [facility] [address] [place] [address], [place] [phone] * Magnesium (09/01/2024 6:04 AM EDT) Magnesium 2.0 1.9 - 2.6 mg/dL LAB CHEMISTRY METHOD 09/01/2024 9:44 AM EDT [facility] Blood Venous blood specimen / Unknown Venipuncture / Unknown 09/01/2024 6:04 AM EDT 09/01/2024 8:28 AM EDT Jonh Benitez MD LAB BLOOD ORDERABLES Final Resu lt [facility] [address] [place] [address], [place] [phone] * (ABNORMAL) Comprehensive metabolic panel (09/01/2024 6:04 AM EDT) Sodium 138 133 - 145 mmol/L LAB CHEMISTRY METHOD 09/01/2024 9:45 AM EDT [facility] Potassium 3.8 3.5 - 5.5 mmol/L LAB CHEMISTRY METHOD 09/01/2024 9:45 AM EDT [facility] Chloride 102 96 - 110 mmol/L LAB CHEMISTRY METHOD 09/01/2024 9:45 AM [facility] CO2 30 21 - 32 mmol/L LAB CHEMISTRY METHOD 09/01/2024 9:45 AM [facility] Anion Gap 6 3 - 11 LAB CHEMISTRY METHOD 09/01/2024 9:45 AM [facility] Glucose 180(H) 70 - 100 mg/dL LAB CHEMISTRY METHOD 09/01/2024 9:45 AM [facility] BUN 14 5 - 25 mg/dL LAB CHEMISTRY METHOD 09/01/2024 9:45 AM [facility] Creatinine 0.81 0.70 - 1.30 mg/dL LAB CHEMISTRY METHOD 09/01/2024 9:45 AM [facility] eGFR 93 >=60 mL/min/1. 73m2 LAB CHEMISTRY METHOD 09/01/2024 9:45 AM [facility] Comment:Calculation based on the Chronic Kidney Disease Epidemiology Collaboration (CKD-EPI) equation refit without adjustment for race. BUN/Creatinine Ratio 17.3 LAB CHEMISTRY METHOD 09/01/2024 9:45 AM [facility] Calcium 8.7 8.5 - 10.5 mg/dL LAB CHEMISTRY METHOD 09/01/2024 9:45 AM [facility] AST (SGOT) 30 10 - 42 unit/L LAB CHEMISTRY METHOD 09/01/2024 9:45 AM [facility] ALT (SGPT) 16 10 - 60 unit/L LAB CHEMISTRY METHOD 09/01/2024 9:45 AM [facility] Alkaline Phosphatase 108 42 - 121 unit/L LAB CHEMISTRY METHOD 09/01/2024 9:45 AM [facility] Total Protein 6.0 6.0 - 8.0 g/dL LAB CHEMISTRY METHOD 09/01/2024 9:45 AM [facility] Albumin 2.9(L) 3.2 - 5.0 g/dL LAB CHEMISTRY METHOD 09/01/2024 9:45 AM EDT [facility] Total Bilirubin 0.5 0.0 - 1.4 mg/dL LAB CHEMISTRY METHOD 09/01/2024 9:45 AM EDT [facility] Blood Venous blood specimen / Unknown Venipuncture / Unknown 09/01/2024 6:04 AM EDT 09/01/2024 8:28 AM EDT us Jonh Benitez MD LAB BLOOD ORDERABLES Final Resu lt [facility] [address] [place] [address], documented in this encounter Visit Diagnoses Diagnosis Encounter for other general examination documented in this encounter Additional Health Concerns Assessment Noted Time PHQ-9 Depression Total Score: 0 07/28/19 9:05 AM EDT documented as of this encounter Care Teams Choke Setter Relationship Specialty Start Date End Date Scott Cooper MD [address] [place] [id number] PCP - General Internal Medicine 04/05/24 documented as of this encounter
--- OUTSIDE RECORDS SUMMARY | 2025-01-18 15:11 | XMS_ITS | Clinical Summary ---
Author Organization [facility] Address [address] [place] [address] Phone Care Team Providers Care Snagger Name Role Phone Scott Cooper MD Primary Care Provider [phone] Allergies Active Allergy Reactions Criticality Noted Date Comments Penicillin Medium 06/14/2024 Penicillins Itching Medium 12/19/2008 Itchiness Medications latanoprost (XALATAN) 0.005 % ophthalmic solution Administer 1 drop into both eyes at bedtime. Active brimonidine-sandy oloL (COMBIGAN) 0.2-0.5 % ophthalmic solution Administer 1 drop into both eyes every 12 (twelve) hours. 5 Active carbidopa-levod opa (SINEMET) 25-100 mg per tablet Take 1 tablet by mouth 1 (one) time each day before breakfast. 30 each 5 Active Additional Information Patient taking differently: 1.5 tabletoral3 times daily, Reported on 09/19/2024 atorvastatin (LIPITOR) 10 mg tablet Take 1 tablet (10 mg total) by mouth 1 (one) time each day. 90 each 5 Active levETIRAcetam (KEPPRA) 500 mg tablet Take 1 tablet (500 mg total) by mouth 2 (two) times a day. 180 each 5 Active valsartan (DIOVAN) 160 mg tablet Take 1 tablet (160 mg total) by mouth 1 (one) time each day. 90 tablet 1 5 Active lancets (OneTouch Delica Plus Lancet) 33 gauge Use to toest blood sugar twice daily 200 each 1 5 Active blood sugar diagnostic (OneTouch Verio test strips) test strip TEST TWICE A DAY PER MD 5 Active OneTouch Verio Reflect Meter misc TEST TWICE A DAY 1 kit 5 Active metFORMIN (GLUCOPHAGE) 1,000 mg tablet Take 1 tablet (1,000 mg total) by mouth 2 (two) times a day with meals. 180 tablet 1 5 Active carvediloL (COREG) 6.25 mg tablet Take 1 tablet (6.25 mg total) by mouth 2 (two) times a day with meals. 180 tablet 1 5 Active amLODIPine (NORVASC) 10 mg tablet Take 1 tablet (10 mg total) by mouth 1 (one) time each day. 90 tablet 5 Active Active Problems Problem Noted Date Diagnosed Date Partial seizure disorder ([facility] V24, [facility] V 28) 07/20/2024 Syncope and collapse 07/18/2024 Occult blood in stools 02/15/2024 Mixed hyperlipidemia 11/20/2022 COVID 12/29/2021 Overview (02/15/2024): Positive rapid test at 12/29/21 Erectile dysfunction 08/09/2021 Class 1 obesity due to exces s calories with serious comorbidity and body mass index (BMI) of 33.0 to 33.9 in adult 08/09/2021 Primary hypertension 11/12/2017 Type 2 diabetes mellitus without complication Overview (12/21/2024): 12/21/24 Regulatory IMO Update Adenocarcinoma of prostate ([facility] V24, [facility] V28) 11/12/2017 Internal hemorrhoids 04/25/2014 Encounters Date Type Department Care Team Description 12/05/2024 Billing Patient Not Present Internal Medicine - [facility] [address] [place] [id number] Scott Cooper MD Metabolic encephalopathy (Primary Dx); Parkinson's disease without dyskinesia or fluctuating manifestations ([facility] V24, [facility] V28); Essential (primary) hypertension; Anemia, unspecified type; Unspecified glaucoma(365.9); Hyperlipidemia, unspecified hyperlipidemia type; 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 11/16/2024 Telephone Internal Medicine [address] [address] Scott Cooper MD 11/11/[address] [phone] Scott Cooper MD 10/20/[address] [phone] Scott Cooper MD 10/19/2024 Billing Patient Not Present Internal [address] [address] Scott Cooper MD Metabolic encephalopathy (Primary Dx); Parkinson's disease without dyskinesia, unspecified whether manifestations fluctuate ([facility] V24, [facility] V28); Essential (primary) hypertension; Anemia, unspecified type; Unspecified glaucoma(365.9); Hyperlipidemia, unspecified hyperlipidemia type; 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 from Last 3 Months Immunizations Immunization Administration Dates Next Due Human Rabies, Chicken Fibrob last Cell Culture, (Rabavert) 06/21/2024,06/14/2024,06/10/2024,2024 Influenza trivalent, 0.5mL ( Fluad) 65yo and older 12/28/2023,12/20/2019 Pfizer (ages 12 & older) Biv alent, COVID-19 12/28/2023 Zoster recombinant (Shingrix ) 19yo and older 11/03/2019 Surgical History Surgery Date Site/Laterality Comments COLONOSCOPY 12/05/2021 PROCEDURE: HISTORICAL COLONOSCOPY; COMMENT: normal Medical History Medical History Date Comments Adenocarcinoma of prostate ( [facility] V24, [facility] V28) 11/12/2017 DX:Adenocarcinoma of prostat e (HCC) Hypertension 11/12/2017 DX:Hypertension Internal hemorrhoids 04/25/2014 DX:Internal hemorrhoids Type 2 diabetes mellitus wit hout complication 11/12/2017 DX:Type 2 diabetes mellitus without complication (HCC) Occult blood in stools DX:Occult blood in stools Mixed hyperlipidemia 11/20/2022 DX:Mixed hy perlipidemia Stroke ([facility] V24, [facility] V28) 07/08/2024 Family History Medical History Relation Name Comments Prostate cancer Father Relation Name Status Comments Father Mother Social History Tobacco Use Types Packs/Day Years Used Date Smoking Tobacco: Never Smokeless Tobacco: Never Tobacco Cessation:Counseling Given: Not Answered Alcohol Use Standard Drinks/Week Comments No 0 [...] Orientation Straight 06/07/2024 3: 25 PM EDT Obstetrics History Last Filed Vital Signs Vital Sign Reading Time Taken Comments Blood Pressure 124/68 09/30/2024 11:30 AM EDT Pulse 71 09/30/2024 11:30 AM EDT Temperature 36.3 C (97.4 F) 08/10/2024 3:00 PM EDT Respiratory Rate 16 09/30/2024 11:30 AM EDT Oxygen Saturation 100% 08/10/2024 3:00 PM EDT Inhaled Oxygen Concentration - - Weight 98.9 kg (218 lb) 09/30/2024 11:30 AM EDT Height 185.4 cm (6' 1 ) 09/19/2024 1:33 PM EDT Body Mass Index 28.76 09/19/2024 1:33 PM EDT Plan of Treatment Upcoming Encounters Date Type Department Care Team (Late st Contact Info) Description 02/10/2025 2:30 PM EST Office Visit Endocrinology [address] [phone] Sobeida Hoff PA [address] [place] [address] 02/13/2025 3:15 PM EST Office Visit Internal Medicine - [address] [phone] Scott Cooper MD [address] [place] [id number] Health Maintenance Due Date Last Done Comments Diabetes: Annual Foot Exam 1961 DTaP,Tdap,and Td Vaccines (1 - Tdap) 1970 Pneumococcal Vaccine: 50+ Years (1 of 2 - PCV) 1970 Diabetes: Annual Retina Eye Exam 07/01/2024 07/02/2023 COVID-19 Vaccine ( season) 2024 12/28/2023, 12/25/2021, 07/11/2021, Additional history exists Influenza Vaccine (#1) 2024 , 12/25/2021, 12/16/2020, Additional history exists Diabetes: Blood Sugar Control Test (HGBA1C) 04/02/2025 09/30/2024, 05/18/2024, 01/04/2024, Additional history exists Diabetes: Annual Urine Albumin-Creatinine Ratio (uACR) 05/18/2025 05/18/2024, 01/04/2024 Falls Risk Assessment 07/26/2025 07/26/2024 Social Influencers of Health Screening 07/27/2025 07/27/2024 Diabetes: Annual GFR (Glomerular Filtration Rate) 09/30/2025 09/30/2024, 09/07/2024, 09/04/2024, Additional history exists Hypertension/CHF/CAD Annual BMP Blood Test 09/30/2025 09/30/2024, 09/07/2024, 09/04/2024, Additional history exists RSV Immunization Adult Patients (1 - 1-dose 75+ series) 2026 Cholesterol Screening (Lipid Panel) 05/18/2029 05/18/2024, 01/04/2024, 01/04/2024 Colorectal Cancer Screening: Colonoscopy 12/06/2031 12/05/2021, 12/05/2021 Hepatitis C Screening Completed 07/11/2021 Zoster Vaccines Completed 04/19/2022, 11/03/2019 Depression Screening Completed 09/19/2024 HIB Vaccines Aged Out No longer eligi ble based on patient's age to complete this topic HPV Vaccines Aged Out No longer eligi ble based on patient's age to complete this topic Hepatitis A Vaccines Aged Out No long er eligible based on patient's age to complete this topic Hepatitis B Vaccines Aged Out No long er eligible based on patient's age to complete this topic IPV Vaccines Aged Out No longer eligi ble based on patient's age to complete this topic MMR Vaccines Aged Out No longer eligi ble based on patient's age to complete this topic Meningococcal ACWY Vaccine Aged Out N o longer eligible based on patient's age to complete this topic Meningococcal B Vaccine Aged Out No l onger eligible based on patient's age to complete this topic RSV Immunization Patients Under 20 months Aged Out No longer eligible based on patient's age to complete this topic Varicella Vaccines Aged Out No longer eligible based on patient's age to complete this topic Procedures Procedure Name Priority Date/Time Associated Diagnosis Comments HOME HEALTH ORDER 11/13/2024 BASIC METABOLIC PANEL Routine 09/30/2024 12:16 PM EDT Confusion HEMOGLOBIN A1C Routine 09/30/2024 12:16 PM EDT Type 2 diabetes mellitus without complication, with long-term current use of insulin ([facility] V24, [facility] V28) MICROALBUMIN CREATININE URINE RATIO Routine 05/18/2024 4:16 PM EST Type 2 diabetes mellitus without complication ([facility] V24, [facility] V28) LIPID PANEL WITH REFLEX TO DIRECT LDL Routine 05/18/2024 4:16 PM EST Type 2 diabetes mellitus without complication, without long-term current use of insulin ([facility] V24, [facility] V28) DIABETES EYE EXAM Routine 07/02/2023 COLONOSCOPY Routine 12/05/2021 HEPATITIS C SCREENING Routine 07/11/2021 from Last 3 Months or Most Recently Relevant to Health Maintenance Results * Home Health Order (11/13/2024) us Provider [facility] NURSING [facility]ESS[facility] Maya ortega Result * Hemoglobin A1c (09/30/2024 12:16 PM EDT) Hemoglobin A1C 5.6 <6.5 % LAB CHEMISTRY METHOD 09/30/2024 9:25 PM EDT [facility] Mean Bld Glu Estim. 114 mg/dL LAB CHEMISTRY METHOD 09/30/2024 9:25 PM EDT [facility] Blood Venous blood specimen / Unknown Venipuncture / Unknown 09/30/2024 12:16 PM EDT 09/30/2024 12:16 PM EDT us Sobeida TORRES LAB BLOOD ORDERABLES Final Result [facility] [address] [place] [address], * (ABNORMAL) Basic metabolic panel (09/30/2024 12:16 PM EDT) Sodium 140 133 - 145 mmol/L LAB CHEMISTRY METHOD 09/30/2024 4:14 PM [facility] Potassium 4.1 3.5 - 5.5 mmol/L LAB CHEMISTRY METHOD 09/30/2024 4:14 PM [facility] Chloride 106 96 - 110 mmol/L LAB CHEMISTRY METHOD 09/30/2024 4:14 PM [facility] CO2 32 21 - 32 mmol/L LAB CHEMISTRY METHOD 09/30/2024 4:14 PM [facility] Anion Gap 2(L) 3 - 11 LAB CHEMISTRY METHOD 09/30/2024 4:14 PM [facility] Glucose 146(H) 70 - 100 mg/dL LAB CHEMISTRY METHOD 09/30/2024 4:14 PM [facility] BUN 18 5 - 25 mg/dL LAB CHEMISTRY METHOD 09/30/2024 4:14 PM [facility] Creatinine 1.08 0.70 - 1.30 mg/dL LAB CHEMISTRY METHOD 09/30/2024 4:14 PM [facility] eGFR 72 >=60 mL/min/1. 73m2 LAB CHEMISTRY METHOD 09/30/2024 4:14 PM [facility] Comment:Calculation based on the Chronic Kidney Disease Epidemiology Collaboration (CKD-EPI) equation refit without adjustment for race. BUN/Creatinine Ratio 16.7 LAB CHEMISTRY METHOD 09/30/2024 4:14 PM [facility] Calcium 9.4 8.5 - 10.5 mg/dL LAB CHEMISTRY METHOD 09/30/2024 4:14 PM [facility] Blood Venous blood specimen / Unknown Venipuncture / Unknown 09/30/2024 12:16 PM EDT 09/30/2024 12:16 PM EDT Romel TORRES LAB BLOOD ORDERABLES Fi nal Result Performing Organization Address City/[facility]/ZIP Co de Phone Number [facility] [address] [place] [address], [place] [phone] * Lipid panel with reflex to direct LDL (05/18/2024 4:16 PM EST) Cholesterol 125 0 - 200 mg/dL LAB CHEMISTRY METHOD 05/18/2024 7:45 PM EST [facility] Triglycerides 50 0 - 150 mg/dL LAB CHEMISTRY METHOD 05/18/2024 7:45 PM EST [facility] HDL 56 >=40 mg/dL LAB CHEMISTRY METHOD 05/18/2024 7:45 PM EST [facility] LDL Calculated 59 0 - 100 mg/dL LAB CHEMISTRY METHOD 05/18/2024 7:45 PM EST [facility] VLDL Cholesterol Sigifredo 10 mg/dL LAB CHEMISTRY METHOD 05/18/2024 7:45 PM EST [facility] Non HDL Chol. (LDL+VLDL) 69 <145 mg/dL LAB CHEMISTRY METHOD 05/18/2024 7:45 PM [facility] Chol/HDL Ratio 2.2 0.0 - 4.4 LAB CHEMISTRY METHOD 05/18/2024 7:45 PM [facility] Blood Venous blood specimen / Unknown Venipuncture / Unknown 05/18/2024 4:16 PM EST 05/18/2024 4:16 PM EST Scott Cooper MD LAB BLOOD ORDERABLES Final Res ult Performing Organization Address [facility]/ZIP Co de Phone Number [facility] [address] [place] [address], [place] [phone] * Microalbumin creatinine urine ratio (05/18/2024 4:16 PM EST) [facility] Creatinine, Urine 270.0 mg/dL LAB CHEMISTRY METHOD 05/18/2024 7:41 PM EST [facility] Microalb, Ur 21.1 0.0 - 29.0 mg/L LAB CHEMISTRY METHOD 05/18/2024 7:41 PM EST [facility] Microalb/Creat Ratio 8 <30 mg/g creat LAB CHEMISTRY METHOD 05/18/2024 7:41 PM EST [facility] Urine Urine specimen obtained by clean catch procedure / Unknown Non-blood Collection / Unknown 05/18/2024 4:16 PM EST 05/18/2024 4:16 PM EST Scott Cooper MD LAB URINE ORDERABLES Final Res ult Performing Organization Address City/State/[facility] Co de Phone Number [facility] [address] [place] [address], * Diabetes Eye Exam (07/02/2023) [facility] Diabetes: Annual Retina Eye Exam Abstracted [facility] Provider HEALTH MAINTENANCE Final Result * Colonoscopy (12/05/2021) [facility] Colonoscopy No Interpretation , Abstracted Anatomical Region Laterality Modality Other [facility] Provider HEALTH MAINTENANCE Final Result * Hepatitis C Screening (07/11/2021) [facility] Hepatitis C Screening Abstracted [facility] Provider HEALTH MAINTENANCE Final Result from Last 3 Months or Most Recently Relevant to Health Maintenance Insurance [facility] MEDICARE Advance Directives Documents on File Type Date Recorded Patient Cad Application Support Specialist Expl anation Advance Directives and Living Will 08/01/2024 10:17 AM PROXY Advance Directives and Living Will 07/11/2024 11:59 AM HEALTH CARE PROXY * Full Code - Confirmed (Latest Code Status on File) Date Activated Date Inactivated Comments 07/18/2024 3:17 PM 07/20/2024 4:[address] atus was ascertained in the following way: Code status discussion: discussion with patient To update the patient's code status, place a code status order. Do not modify or discontinue any currently active code status orders. * Full Code - Default Date Activated Date Inactivated Comments 07/08/2024 7:45 PM 07/18/2024 3:17 PM This is orde r is used when code status has not been discussed with the patient, or code status is otherwise unknown/unconfirmed To update the patient's code status, place a code status order. Do not modify or discontinue any currently active code status orders. Care Teams Snagger Relationship Specialty Start Date End Date Scott Cooper MD [address] [place] [id number] PCP - General Internal Medicine 04/05/24
== END 2025-01-18 12:55 | disposition home or self-care (01) ==
PROVIDERS: PCP Physician Assistant; Visit Provider Psychiatry & Neurology Neurology
DX: G20.C Parkinsonism, unspecified (principal); G31.84 Mild cognitive impairment of uncertain or unknown etiology
CPT/HCPCS: 99204

== ENCOUNTER 2025-02-03 09:27 | Outpatient (AMB) | payer BC, SELFPAY ==
--- NOTE | 2025-02-03 09:29 | A.OFFVIS_ITS ---
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 He recently saw Dr. Moncada on 01/18/2025 who recommended some further testing including formal cognitive testing (Foard and mms) as well as an MRI of the brain. Please see detailed HPI from office visit 01/18/2025 [facility] Medical History (Updated 01/18/25 @ 12:36 by Helena Moncada MD) Internal hemorrhoid Adenocarcinoma of prostate Type 2 diabetes mellitus Primary hypertension Class 1 obesity due to excess calories with body mass index (BMI) of 33.0 to 33.9 in adult Erectile dysfunction COVID-19 Mixed hyperlipidemia Occult blood positive stool Syncope and collapse Partial seizure disorder Surgical History (Updated 01/13/25 @ 15:47 by SINA Zayas) H/O colonoscopy Family History (Updated 01/13/25 @ 15:47 by SINA Zayas) Father Prostate cancer Review of Systems Const All systems reviewed & are unremarkable except as noted in HPI and below Neuro Reports Abnormal speech present (slow) Physical Exam Exam Exam: Foard score:16/30 and MMS:21 Vital Signs: Last Vital Signs Pulse 77 02/03/25 09:35 Resp 16 02/03/25 09:35 BP 128/78 02/03/25 09:35 Pulse Ox 97 02/03/25 09:35 Oxygen Delivery Method Room Air 02/03/25 09:35 BMI result Body Mass Index 31.7 Const Orientation/consciousness: oriented to person Neuro General: oriented to person Cognition (Neuro): abnormal cognition Speech: Abnormal speech present (slow) Gait exam (Neuro): Shuffling gait present Psych Appearance: well kempt Affect: Blunted affect present Attitude: cooperative Insight: Limited insight present (Psych) Judgement: Limited judgement present (Psych) Assessment & Plan Assessment & Plan (1) Parkinsonian syndrome: Code(s): G20 - Parkinson's disease Category: Medical (2) MCI (mild cognitive impairment) with memory loss: Code(s): G31.84 - Mild cognitive impairment of uncertain or unknown etiology Category: Medical Plan Jitendra Hanley is a 74-year-old right-handed male patient with a past history of hypertension, diabetes, hyperlipidemia and 2 years of cognitive decline with short-term memory problems here today for cognitive testing. Testing was completed and the patient can follow-up once his MRI is back. His daughter was given a card today to call once she has a date for his MRI. Coding Level of Care Code Est Pt Level 2 (75617) Diagnoses Parkinsonian syndrome G20 MCI (mild cognitive impairment) with memory loss G31.84
[2025-02-03 09:35] VITALS: BP 128/78; PULSE 77; RESP 16; O2SAT 97; BMI 31.7
--- OUTSIDE RECORDS SUMMARY | 2025-02-03 10:26 | XMS_ITS | Clinical Summary ---
Author Organization [facility] Address [address] [place] [address] Phone Care Team Providers Care Talent Specialist Name Role Phone Scott Cooper MD Primary Care Provider [phone] Allergies Active Allergy Reactions Criticality Noted Date [...] Noted Date Diagnosed Date Partial seizure disorder ([facility] V24, [facility] V 28) 07/20/2024 Syncope and collapse 07/18/2024 [...] 12/21/24 Regulatory IMO Update Adenocarcinoma of prostate ([facility] V24, [facility] V28) 11/12/2017 Internal hemorrhoids 04/25/2014 Encounters Date Type Department Care Team Description 12/05/2024 Billing Patient Not Present Internal Medicine - [facility] [address] [place] [id number] Scott Cooper MD Metabolic encephalopathy (Primary Dx); Parkinson's disease without dyskinesia or fluctuating manifestations [place] [place] [facility] [place]); Essential (primary) hypertension; Anemia, unspecified type; Unspecified glaucoma(365.9); Hyperlipidemia, unspecified hyperlipidemia type; terminal gauger (current) use of oral hypoglycemic drugs 11/16/2024 Telephone Internal Medicine - [address] [phone] Scott Cooper MD 11/11/2024 Telephone Internal Medicine - [address] [phone] Scott Cooper MD from Last 3 Months Immunizations Immunization Administration Dates Next Due Human Rabies, Chicken Fibrob last Cell Culture, (Rabavert) 06/21/2024,06/14/2024,06/10/2024,2024 Influenza trivalent, 0.5mL ( Fluad) 65yo and older 12/28/2023,12/20/2019 Influenza trivalent, 0.5mL ( Fluzone High-dose) 65yo and older 02/01/2025 Pfizer (ages 12 & older) Biv alent, COVID-19 12/28/2023 Zoster recombinant (Shingrix ) 19yo and older 11/03/2019 Surgical History Surgery Date Site/Laterality Comments COLONOSCOPY 12/05/2021 PROCEDURE: HISTORICAL COLONOSCOPY; COMMENT: normal Medical History Medical History Date Comments Adenocarcinoma of prostate ( [facility] [place] [facility] [place]) 11/12/2017 DX:Adenocarcinoma of prostat e (HCC) Hypertension 11/12/2017 DX:Hypertension Internal hemorrhoids 04/25/2014 DX:Internal hemorrhoids Type 2 diabetes mellitus wit hout complication 11/12/2017 DX:Type 2 diabetes mellitus without complication (HCC) Occult blood in stools DX:Occult blood in stools Mixed hyperlipidemia 11/20/2022 DX:Mixed hy perlipidemia Stroke ([facility] [place] [facility] [place]) 07/08/2024 Family History Medical History Relation [...] 2:30 PM EST Office Visit Endocrinology - [address] [phone] Sobeida Hoff PA [address] [place] [address] 02/13/2025 3:15 PM EST Office Visit Internal Medicine - [address] [phone] Scott Cooper MD [address] [place] [address] Health Maintenance Due Date Last Done Comments Diabetes: Annual Foot Exam 1961 DTaP,Tdap,and Td Vaccines (1 - Tdap) 1970 Pneumococcal Vaccine: 50+ Years (1 of 2 - PCV) 1970 Zoster Vaccines (2 of 2) 12/29/2019 11/03/2019 Diabetes: Annual Retina Eye Exam 07/01/2024 07/02/2023 Diabetes: Blood Sugar Control Test (HGBA1C) 04/02/2025 09/30/2024, 05/18/2024, 01/04/2024, Additional history exists Diabetes: Annual Urine Albumin-Creatinine Ratio (uACR) 05/18/2025 05/18/2024, 01/04/2024 Falls Risk Assessment 07/26/2025 07/26/2024 Social Influencers of Health Screening 07/27/2025 07/27/2024 COVID-19 Vaccine (6 - Pfizer risk season) 2025 02/01/2025, 12/28/2023, 12/25/2021, Additional history exists Diabetes: Annual GFR (Glomerular Filtration Rate) 09/30/2025 09/30/2024, 09/07/2024, 09/04/2024, Additional history exists Hypertension/CHF/CAD Annual BMP Blood Test 09/30/2025 09/30/2024, 09/07/2024, 09/04/2024, Additional history exists RSV Immunization Adult Patients (1 - 1-dose 75+ series) 2026 Cholesterol Screening (Lipid Panel) 05/18/2029 05/18/2024, 01/04/2024, 01/04/2024 Colorectal Cancer Screening: Colonoscopy 12/06/2031 12/05/2021, 12/05/2021 Hepatitis C Screening Completed 07/11/2021 Depression Screening Completed 09/19/2024 Influenza Vaccine Completed 02/01/2025, , 12/20/2019 HIB Vaccines Aged Out No longer eligi [...] complication, with long-term current use of insulin (CMS/HCC V24, CMS/HCC V28) MICROALBUMIN CREATININE URINE RATIO Routine 05/18/2024 4:16 PM EST Type 2 diabetes mellitus without complication (CMS/HCC V24, CMS/HCC V28) LIPID PANEL WITH REFLEX TO DIRECT LDL Routine 05/18/2024 4:16 PM EST Type 2 diabetes mellitus without complication, without long-term current use of insulin ([facility] V24, [facility] V28) DIABETES EYE EXAM Routine 07/02/2023 COLONOSCOPY Routine 12/05/2021 HEPATITIS C SCREENING Routine 07/11/2021 from Last 3 Months or Most Recently Relevant to Health Maintenance Results * Home Health Order (11/13/2024) us Provider [facility] Maya ortega Result * Hemoglobin A1c (09/30/2024 12:16 PM EDT) Hemoglobin A1C 5.6 <6.5 % LAB CHEMISTRY METHOD 09/30/2024 9:25 PM EDT [facility] Mean Bld Glu Estim. 114 mg/dL LAB CHEMISTRY METHOD 09/30/2024 9:25 PM EDT [facility] Blood Venous blood specimen / Unknown Venipuncture / Unknown 09/30/2024 12:16 PM EDT 09/30/2024 12:16 PM EDT us Sobeida TORRES LAB BLOOD ORDERABLES Final Result [facility] [address] [place] [address], * (ABNORMAL) Basic metabolic panel (09/30/2024 12:16 PM EDT) Sodium 140 133 - 145 mmol/L LAB CHEMISTRY METHOD 09/30/2024 4:14 PM EDT [facility] Potassium 4.1 3.5 - 5.5 mmol/L LAB CHEMISTRY METHOD 09/30/2024 4:14 PM EDT [facility] Chloride 106 96 - 110 mmol/L LAB CHEMISTRY METHOD 09/30/2024 4:14 PM [facility] CO2 32 21 - 32 mmol/L LAB CHEMISTRY METHOD 09/30/2024 4:14 PM [facility] Anion Gap 2(L) 3 - 11 LAB CHEMISTRY METHOD 09/30/2024 4:14 PM [facility] Glucose 146(H) 70 - 100 mg/dL LAB CHEMISTRY METHOD 09/30/2024 4:14 PM [facility] BUN 18 5 - 25 mg/dL LAB CHEMISTRY METHOD 09/30/2024 4:14 PM [facility] Creatinine 1.08 0.70 - 1.30 mg/dL LAB CHEMISTRY METHOD 09/30/2024 4:14 PM [facility] eGFR 72 >=60 mL/min/1. 73m2 LAB CHEMISTRY METHOD 09/30/2024 4:14 PM [facility] Comment:Calculation based on the Chronic Kidney Disease Epidemiology Collaboration (CKD-EPI) equation refit without adjustment for race. BUN/Creatinine Ratio 16.7 LAB CHEMISTRY METHOD 09/30/2024 4:14 PM [facility] Calcium 9.4 8.5 - 10.5 mg/dL LAB CHEMISTRY METHOD 09/30/2024 4:14 PM [facility] Blood Venous blood specimen / Unknown Venipuncture / Unknown 09/30/2024 12:16 PM EDT 09/30/2024 12:16 PM EDT us Romel TORRES LAB BLOOD ORDERABLES Fi nal Result [facility] [address] [place] [address], * Lipid panel with reflex to direct LDL (05/18/2024 4:16 PM EST) Cholesterol 125 0 - 200 mg/dL LAB CHEMISTRY METHOD 05/18/2024 7:45 PM EST [facility] Triglycerides 50 0 - 150 mg/dL LAB CHEMISTRY METHOD 05/18/2024 7:45 PM EST [facility] HDL 56 >=40 mg/dL LAB CHEMISTRY METHOD 05/18/2024 7:45 PM [facility] LDL Calculated 59 0 - 100 mg/dL LAB CHEMISTRY METHOD 05/18/2024 7:45 PM [facility] VLDL Cholesterol Sigifredo 10 mg/dL LAB CHEMISTRY METHOD 05/18/2024 7:45 PM [facility] Non HDL Chol. (LDL+VLDL) 69 <145 mg/dL LAB CHEMISTRY METHOD 05/18/2024 7:45 PM [facility] Chol/HDL Ratio 2.2 0.0 - 4.4 LAB CHEMISTRY METHOD 05/18/2024 7:45 PM [facility] Blood Venous blood specimen / Unknown Venipuncture / Unknown 05/18/2024 4:16 PM EST 05/18/2024 4:16 PM EST us Scott Cooper MD LAB BLOOD ORDERABLES Final Res ult [facility] [address] [place] [address], * Microalbumin creatinine urine ratio (05/18/2024 4:16 PM EST) Creatinine, Urine 270.0 mg/dL LAB CHEMISTRY METHOD 05/18/2024 7:41 PM [facility] Microalb, Ur 21.1 0.0 - 29.0 mg/L LAB CHEMISTRY METHOD 05/18/2024 7:41 PM [facility] Microalb/Creat Ratio 8 <30 mg/g creat LAB CHEMISTRY METHOD 05/18/2024 7:41 PM [facility] Urine Urine specimen obtained by clean catch procedure / Unknown Non-blood Collection / Unknown 05/18/2024 4:16 PM EST 05/18/2024 4:16 PM EST Scott Cooper MD LAB URINE ORDERABLES Final Res ult [facility] [address] [place] [address], * Diabetes Eye Exam (07/02/2023) [facility] Diabetes: Annual Retina Eye Exam Abstracted Historical Provider HEALTH MAINTENANCE Final Result * Colonoscopy (12/05/2021) [facility] Colonoscopy No Interpretation , Abstracted Anatomical Region Laterality Modality Other Historical Provider HEALTH MAINTENANCE Final Result * Hepatitis C Screening (07/11/2021) [facility] Hepatitis C Screening Abstracted Historical Provider HEALTH MAINTENANCE Final Result from Last 3 Months or Most Recently Relevant to Health Maintenance Insurance [facility] MEDICARE Advance Directives Documents on File Type Date Recorded Patient Web Developer Programmer Expl anation Advance Directives and Living Will [...] currently active code status orders. Care Teams Talent Specialist Relationship Specialty Start Date End Date Scott Cooper MD [address] [place] [phone] PCP - General Internal Medicine 04/05/24
--- OUTSIDE RECORDS SUMMARY | 2025-02-03 10:26 | XMS_ITS | Continuity of Care Document ---
Author Organization [facility] Address [address] [facility] [address] [place] [address] Phone [phone] Care Team Providers Care Harness Puller Name Role Phone Scott Cooper M.D. Care Team Information Receive r [phone] Problems Active Problems Provider Date Diabetes mellitus [...] Qnty Indications Order ing Provider Date Olmesartan [id number] Tablets 1 by mouth twice per day Nick Machado M.D. 09/03/2022 Amlodipine Wcuflkxj63wj Tablets 1 by mouth every day 90tabs Nick Machado M.D. 09/03/2022 Accu-Chek Fastclix LancetsMisc use 1 lancet 2 times a day 204units E11.9 Nick Machado M.D. 11/08/2021 Accu-Chek SmartviewStrips Use Twice Daily To Test BS as Directed 200units Nick Machado M.D. Atorvastatin Lhziyal50vc Tablets Take 1 Tablet By Mouth Every Day Unknown Sqgeollicmw6oi Tablets Take 1 Tablet By Mouth Every Day Moe Haywood Metformin RDH610mg Tablets Take 2 Tablets By Mouth Twice A Day With Meals Unknown Vital Signs Date Vital Result Comment 09/03/2022 10:39am Height 73 inches 6'1 Weight 250.00 lb BMI (Body Mass Index) 33.0 kg/m2 Results Test Acquired Date Facility Test Result H/L Range Note Comprehensive Metabolic Panl 09/03/2022 [facility] Glucose 221 mg/dL High (70-99) [...] 3M2 1 Complete Abc With Diff 09/03/2022 [facility] WBC 7.0 K/MM3 (4.0-11. 0) [...] ) Lymph # 2.1 K/MM3 (0.8-3.1 ) Iroquois# 0.5 K/MM3 (0.4-1.3 ) Eo # 0.1 K/MM3 (0.0-0.4 ) Baso # 0.0 K/MM3 (0.0-0.1 ) Abs. Imm Gran 0.0 K/MM3 Neut 60.2 % (44-76) Lymph 29.6 % (15-43) Monocyte 7.6 % (4.5-10. 5) Eo 1.9 % (0-6) Baso 0.6 % (0-2) Imm Gran 0.1 % TSH With Reflex To FT4 09/03/2022 [facility] TSH With Reflex To FT4 1.90 uIU/mL (0.4-4.2 ) Hemoglobin A1c 09/03/2022 Inhouse Hemoglobin A1c 6.8% Glucose Fingerstick 09/03/2022 Inhouse Glucose Fingerstick 233 Hemoglobin A1c 05/05/2022 Inhouse Hemoglobin A1c 6.5% Glucose Fingerstick 05/05/2022 Inhouse Glucose Fingerstick 263 Comprehensive Metabolic Panl 01/30/2022 [facility] Glucose 144 mg/dL High (70-99) [...] 3M2 2 Complete Abc With Diff 01/30/2022 [facility] WBC 8.8 K/MM3 (4.0-11. 0) [...] ) Lymph # 1.6 K/MM3 (0.8-3.1 ) Iroquois# 0.6 K/MM3 (0.4-1.3 ) Eo # 0.1 K/MM3 (0.0-0.4 ) Baso # 0.0 K/MM3 (0.0-0.1 ) Abs. Imm Gran 0.0 K/MM3 Neut 74.0 % (44-76) Lymph 17.6 % (15-43) Monocyte 7.1 % (4.5-10. 5) Eo 0.9 % (0-6) Baso 0.3 % (0-2) Imm Gran 0.1 % TSH With Reflex To FT4 01/30/2022 [facility] TSH With Reflex To FT4 [...]
--- OUTSIDE RECORDS SUMMARY | 2025-02-03 10:27 | XMS_ITS | Encounter Summary ---
Author Organization [facility] Address [address] [place] [address] Care Team Providers Care Recruiter Name Role Phone Scott Cooper MD Primary Care Provider [phone] Encounter Details Date Type Department Care Team (Late st Contact Info) Description 09/01/2024 Lab Requisition [facility] [address] [facility] [place] [address] Jonh Benitez MD [address] [place] [phone] Encounter for other general examination Social History [...] 2:30 PM EST Office Visit Endocrinology - [address] [phone] Sobeida Hoff PA [address] [place] [address] 02/13/2025 3:15 PM EST Office Visit Internal Medicine - [address] [phone] Scott Cooper MD [address] [place] [address] documented as of this encounter Procedures Procedure [...] LAB HEMETOLOGY METHOD 09/01/2024 9:57 AM EDT [facility] RBC 3.80(L) 4.50 - 5.50 M/mcL LAB HEMETOLOGY METHOD 09/01/2024 9:57 AM EDT [facility] Hemoglobin 11.4(L) 13.5 - 17.5 g/dL LAB HEMETOLOGY METHOD 09/01/2024 9:57 AM EDT [facility] Hematocrit 32.3(L) 42.0 - 54.0 % LAB HEMETOLOGY METHOD 09/01/2024 9:57 AM [facility] MCV 84.1 79.0 - 98.0 FL LAB HEMETOLOGY METHOD 09/01/2024 9:57 AM [facility] MCH 29.7 27.0 - 32.0 pcg LAB HEMETOLOGY METHOD 09/01/2024 9:57 AM [facility] MCHC 35.3 32.0 - 37.0 g/dL LAB HEMETOLOGY METHOD 09/01/2024 9:57 AM [facility] RDW 14.9 11.0 - 15.0 % LAB HEMETOLOGY METHOD 09/01/2024 9:57 AM [facility] Platelets 190 130 - 400 K/mcL LAB HEMETOLOGY METHOD 09/01/2024 9:57 AM [facility] MPV 10.1 7.0 - 11.0 FL LAB HEMETOLOGY METHOD 09/01/2024 9:57 AM [facility] NRBC 0.0 <1.0 % LAB HEMETOLOGY METHOD 09/01/2024 9:57 AM [facility] NRBC Absolute 0.00 <0.10 K/mcL LAB HEMETOLOGY METHOD 09/01/2024 9:57 AM [facility] Neutrophils Relative 66.7 % LAB HEMETOLOGY METHOD 09/01/2024 9:57 AM [facility] Comment:This is an appended report. These results have been appended to a previously preliminary verified report. Lymphocytes Relative 17.4 % LAB HEMETOLOGY METHOD 09/01/2024 9:57 AM [facility] Comment:This is an appended report. These results have been appended to a previously preliminary verified report. Monocytes Relative 11.4 % LAB HEMETOLOGY METHOD 09/01/2024 9:57 AM [facility] Comment:This is an appended report. These results have been appended to a previously preliminary verified report. Eosinophils Relative 2.7 % LAB HEMETOLOGY METHOD 09/01/2024 9:57 AM [facility] Comment:This is an appended report. These results have been appended to a previously preliminary verified report. Basophils Relative 0.5 % LAB HEMETOLOGY METHOD 09/01/2024 9:57 AM [facility] Comment:This is an appended report. These results have been appended to a previously preliminary verified report. Immature Granulocytes Relative 1.3 % LAB HEMETOLOGY METHOD 09/01/2024 9:57 AM [facility] Comment:This is an appended report. These results have been appended to a previously preliminary verified report. Neutrophils Absolute 4.24 1.50 - 7.00 K/mcL [facility] 09/01/2024 9:57 AM [facility] Comment:This is an appended report. These results have been appended to a previously preliminary verified report. Lymphocytes Absolute 1.10 1.00 - 5.00 K/mcL [facility] 09/01/2024 9:57 AM [facility] Comment:This is an appended report. These results have been appended to a previously preliminary verified report. Monocytes Absolute 0.72 0.20 - 1.00 K/mcL LAB HEMETOLOGY METHOD 09/01/2024 9:57 AM [facility] Comment:This is an appended report. These results have been appended to a previously preliminary verified report. Eosinophils Absolute 0.17 0.00 - 0.50 K/mcL LAB HEMETOLOGY METHOD 09/01/2024 9:57 AM [facility] Comment:This is an appended report. These results have been appended to a previously preliminary verified report. Basophils Absolute 0.03 0.00 - 0.20 K/mcL LAB HEMETOLOGY METHOD 09/01/2024 9:57 AM [facility] Comment:This is an appended report. These results have been appended to a previously preliminary verified report. Immature Granulocytes Absolute 0.08(H) 0.00 - 0.03 K/mcL LAB HEMETOLOGY METHOD 09/01/2024 9:57 AM EDT [facility] Comment:This is an appended report. These results have been appended to a previously preliminary verified report. Blood Venous blood specimen / Unknown Venipuncture / Unknown 09/01/2024 6:04 AM EDT 09/01/2024 8:28 AM EDT Jonh Benitez MD LAB BLOOD ORDERABLES Final Resu lt [facility] [address] [place] [address], [place] [phone] * Magnesium (09/01/2024 6:04 AM EDT) Magnesium 2.0 1.9 - 2.6 mg/dL LAB CHEMISTRY METHOD 09/01/2024 9:44 AM EDT [facility] Blood Venous blood specimen / Unknown Venipuncture / Unknown 09/01/2024 6:04 AM EDT 09/01/2024 8:28 AM EDT Jonh Benitez MD LAB BLOOD ORDERABLES Final Resu lt [facility] [address] [place] [address], [place] [phone] * (ABNORMAL) Comprehensive metabolic panel (09/01/2024 6:04 AM EDT) Sodium 138 133 - 145 mmol/L LAB CHEMISTRY METHOD 09/01/2024 9:45 AM EDT [facility] Potassium 3.8 3.5 - 5.5 mmol/L LAB CHEMISTRY METHOD 09/01/2024 9:45 AM EDT [facility] Chloride 102 96 - 110 mmol/L LAB CHEMISTRY METHOD 09/01/2024 9:45 AM [facility] CO2 30 21 - 32 mmol/L LAB CHEMISTRY METHOD 09/01/2024 9:45 AM [facility] Anion Gap 6 3 - 11 LAB CHEMISTRY METHOD 09/01/2024 9:45 AM [facility] Glucose 180(H) 70 - 100 mg/dL LAB CHEMISTRY METHOD 09/01/2024 9:45 AM [facility] BUN 14 5 - 25 mg/dL LAB CHEMISTRY METHOD 09/01/2024 9:45 AM [facility] Creatinine 0.81 0.70 - 1.30 mg/dL LAB CHEMISTRY METHOD 09/01/2024 9:45 AM [facility] eGFR 93 >=60 mL/min/1. 73m2 LAB CHEMISTRY METHOD 09/01/2024 9:45 AM [facility] Comment:Calculation based on the Chronic Kidney Disease Epidemiology Collaboration (CKD-EPI) equation refit without adjustment for race. BUN/Creatinine Ratio 17.3 LAB CHEMISTRY METHOD 09/01/2024 9:45 AM [facility] Calcium 8.7 8.5 - 10.5 mg/dL LAB CHEMISTRY METHOD 09/01/2024 9:45 AM [facility] AST (SGOT) 30 10 - 42 unit/L LAB CHEMISTRY METHOD 09/01/2024 9:45 AM [facility] ALT (SGPT) 16 10 - 60 unit/L LAB CHEMISTRY METHOD 09/01/2024 9:45 AM [facility] Alkaline Phosphatase 108 42 - 121 unit/L LAB CHEMISTRY METHOD 09/01/2024 9:45 AM [facility] Total Protein 6.0 6.0 - 8.0 g/dL LAB CHEMISTRY METHOD 09/01/2024 9:45 AM [facility] Albumin 2.9(L) 3.2 - 5.0 g/dL LAB CHEMISTRY METHOD 09/01/2024 9:45 AM EDT [facility] Total Bilirubin 0.5 0.0 - 1.4 mg/dL LAB CHEMISTRY METHOD 09/01/2024 9:45 AM EDT [facility] Blood Venous blood specimen / Unknown Venipuncture / Unknown 09/01/2024 6:04 AM EDT 09/01/2024 8:28 AM EDT us Jonh Benitez MD LAB BLOOD ORDERABLES Final Resu lt [facility] [address] [place] [address], documented in this encounter Visit Diagnoses Diagnosis Encounter for other general examination documented in this encounter Additional Health Concerns Assessment Noted Time PHQ-9 Depression Total Score: 0 07/28/19 9:05 AM EDT documented as of this encounter Care Teams Recruiter Relationship Specialty Start Date End Date Scott Cooper MD [address] [place] [phone] PCP - General Internal Medicine 04/05/24 documented as of this encounter
--- OUTSIDE RECORDS SUMMARY | 2025-02-03 10:27 | XMS_ITS | Encounter Summary ---
Author Organization [facility] Address [address] [place] [address] Care Team Providers Care Head Of Insight Name Role Phone Scott Cooper MD Primary Care Provider [phone] Encounter Details Date Type Department Care Team (Late st Contact Info) Description 09/07/2024 Lab Requisition [facility] - Main Lab 299 [facility] [place] [address] Jonh Benitez MD [address] [place] [address] Encounter for other general examination Social History [...] 2:30 PM EST Office Visit Endocrinology - [place] [address] [place], [place] [phone] Sobeida Hoff PA [address] [place] [address] 02/13/2025 3:15 PM EST Office Visit Internal Medicine - [address] [phone] Scott Cooper MD [address] [place] [address] documented as of this encounter Procedures Procedure [...] LAB CHEMISTRY METHOD 09/07/2024 11:47 AM EDT [facility] Blood Venous blood specimen / Unknown Venipuncture / Unknown 09/07/2024 4:53 AM EDT 09/07/2024 9:23 AM EDT us Jonh Benitez MD LAB BLOOD ORDERABLES Final Resu lt [facility] [address] [place] [address], * Vitamin D 25 hydroxy (09/07/2024 4:53 AM EDT) Vit D, 25-Hydroxy 45.3 30.0 - 80.0 ng/mL LAB CHEMISTRY METHOD 09/07/2024 11:47 AM EDT [facility] Blood Venous blood specimen / Unknown Venipuncture / Unknown 09/07/2024 4:53 AM EDT 09/07/2024 9:23 AM EDT Jonh Benitez MD LAB BLOOD ORDERABLES Final Resu lt [facility] [address] [place] [address], [place] [phone] * Vitamin B12 (09/07/2024 4:53 AM EDT) Pathologist [facility] Vitamin B-12 636 250 - 900 pcg/mL LAB CHEMISTRY METHOD 09/07/2024 11:24 AM EDT [facility] Blood Venous blood specimen / Unknown Venipuncture / Unknown 09/07/2024 4:53 AM EDT 09/07/2024 9:23 AM EDT Jonh Benitez MD LAB BLOOD ORDERABLES Final Resu lt [facility] [address] [place] [address], [place] [phone] * Comprehensive metabolic panel (09/07/2024 4:53 AM EDT) Pathologist [facility] Sodium 138 133 - 145 mmol/L LAB CHEMISTRY METHOD 09/07/2024 11:25 AM EDT [facility] Potassium 4.3 3.5 - 5.5 mmol/L LAB CHEMISTRY METHOD 09/07/2024 11:25 AM EDT [facility] Chloride 102 96 - 110 mmol/L LAB CHEMISTRY METHOD 09/07/2024 11:25 AM EDT [facility] CO2 31 21 - 32 mmol/L LAB CHEMISTRY METHOD 09/07/2024 11:25 AM [facility] Anion Gap 5 3 - 11 LAB CHEMISTRY METHOD 09/07/2024 11:25 AM [facility] Glucose 92 70 - 100 mg/dL LAB CHEMISTRY METHOD 09/07/2024 11:25 AM [facility] BUN 16 5 - 25 mg/dL LAB CHEMISTRY METHOD 09/07/2024 11:25 AM [facility] Creatinine 0.82 0.70 - 1.30 mg/dL LAB CHEMISTRY METHOD 09/07/2024 11:25 AM [facility] eGFR 93 >=60 mL/min/1. 73m2 LAB CHEMISTRY METHOD 09/07/2024 11:25 AM [facility] Comment:Calculation based on the Chronic Kidney Disease Epidemiology Collaboration (CKD-EPI) equation refit without adjustment for race. BUN/Creatinine Ratio 19.5 LAB CHEMISTRY METHOD 09/07/2024 11:25 AM [facility] Calcium 9.4 8.5 - 10.5 mg/dL LAB CHEMISTRY METHOD 09/07/2024 11:25 AM [facility] AST (SGOT) 37 10 - 42 unit/L LAB CHEMISTRY METHOD 09/07/2024 11:25 AM [facility] ALT (SGPT) 40 10 - 60 unit/L LAB CHEMISTRY METHOD 09/07/2024 11:25 AM [facility] Alkaline Phosphatase 104 42 - 121 unit/L LAB CHEMISTRY METHOD 09/07/2024 11:25 AM [facility] Total Protein 6.4 6.0 - 8.0 g/dL LAB CHEMISTRY METHOD 09/07/2024 11:25 AM [facility] Albumin 3.3 3.2 - 5.0 g/dL LAB CHEMISTRY METHOD 09/07/2024 11:25 AM EDT [facility] Total Bilirubin 0.5 0.0 - 1.4 mg/dL LAB CHEMISTRY METHOD 09/07/2024 11:25 AM EDT [facility] Blood Venous blood specimen / Unknown Venipuncture / Unknown 09/07/2024 4:53 AM EDT 09/07/2024 9:23 AM EDT us Jonh Benitez MD LAB BLOOD ORDERABLES Final Resu lt [facility] [address] [place] [address], documented in this encounter Visit Diagnoses Diagnosis Encounter for other general examination documented in this encounter Additional Health Concerns Assessment Noted Time PHQ-9 Depression Total Score: 0 07/28/19 9:05 AM EDT documented as of this encounter Care Teams Head Of Insight Relationship Specialty Start Date End Date Scott Cooper MD [address] [place] [id number] PCP - General Internal Medicine 04/05/24 documented as of this encounter
--- OUTSIDE RECORDS SUMMARY | 2025-02-03 10:27 | XMS_ITS | Encounter Summary ---
Author Organization [facility] Address [address] [place] [address] Care Team Providers Care Hand Wrapper Operator Name Role Phone Scott Cooper MD Primary Care Provider [phone] Encounter Details Date Type Department Care Team (Late st Contact Info) Description 09/04/2024 Lab Requisition [facility] - Main Lab 299 [facility] [place] [address] Jonh Benitez MD [address] [place] [address] Urinary tract infection, site not specified Social [...] EST Office Visit Endocrinology - [place] [place], [place] [phone] Sobeida Hoff PA [address] [place] [address] 02/13/2025 3:15 PM EST Office Visit Internal Medicine - [address] [phone] Scott Cooper MD [address] [place] [address] documented as of this encounter Procedures Procedure [...] no further workup 09/05/2024 12:40 PM EDT [facility] Urine Urine specimen obtained by clean catch procedure / Unknown Non-blood Collection / Unknown 09/03/2024 2:00 PM EDT 09/04/2024 10:22 AM EDT us Jonh Benitez MD LAB MICROBIOLOGY - GENERAL FRANK BREWER Final Result [facility] [address] [place] [address], [place] [phone] * (ABNORMAL) Urinalysis with reflex microscopic and culture (09/03/2024 2:00 PM EDT) Specific [place] Urine 1.018 1.003 - 1.030 LAB URINALYSIS - AUTOMATED METHOD 09/04/2024 10:22 AM [facility] pH, Urine 6.0 5.0 - 8.0 pH LAB URINALYSIS - AUTOMATED METHOD 09/04/2024 10:22 AM [facility] Leukocytes, Urine Small(A) Negative LAB URINALYSIS - AUTOMATED METHOD 09/04/2024 10:22 AM [facility] Nitrite, Urine Negative Negative LAB URINALYSIS - AUTOMATED METHOD 09/04/2024 10:22 AM [facility] Protein, Urine Trace <=Trace mg/dL LAB URINALYSIS - AUTOMATED METHOD 09/04/2024 10:22 AM [facility] Glucose, Urine Negative Negative mg/dL LAB URINALYSIS - AUTOMATED METHOD 09/04/2024 10:22 AM [facility] Ketones, Urine Trace(A) Negative mg/dL LAB URINALYSIS - AUTOMATED METHOD 09/04/2024 10:22 AM [facility] Urobilinogen, Urine 1.0 0.2 - 1.0 mg/dL LAB URINALYSIS - AUTOMATED METHOD 09/04/2024 10:22 AM [facility] Bilirubin, Urine Small(A) Negative LAB URINALYSIS - AUTOMATED METHOD 09/04/2024 10:22 AM [facility] Blood, Urine Negative Negative LAB URINALYSIS - AUTOMATED METHOD 09/04/2024 10:22 AM [facility] RBC, Urine 1.3 0 - 4 /HPF LAB URINALYSIS - AUTOMATED METHOD 09/04/2024 10:22 AM [facility] WBC, Urine 11.9(H) 0 - 4 /HPF LAB URINALYSIS - AUTOMATED METHOD 09/04/2024 10:22 AM EDT [facility] Squamous Epithelial, Urine 49 0 - 60 /LPF LAB URINALYSIS - AUTOMATED METHOD 09/04/2024 10:22 AM EDT [facility] Bacteria, Urine Negative Negative /HPF LAB URINALYSIS - AUTOMATED METHOD 09/04/2024 10:22 AM EDT [facility] Hyaline Casts, Urine 10.8(H) 0 - 3 /LPF LAB URINALYSIS - AUTOMATED METHOD 09/04/2024 10:22 AM EDT [facility] Urine Urine specimen obtained by clean catch procedure / Unknown Non-blood Collection / Unknown 09/03/2024 2:00 PM EDT 09/04/2024 9:08 AM EDT us Jonh Benitez MD LAB URINE ORDERABLES Final Resu lt Performing Organization Address City/[facility]/ZIP Co de Phone Number [facility] [address] [place] [address], [place] [phone] * Lyman urine culture tube (09/03/2024 2:00 PM EDT) Extra Tube Hold for add-ons. 09/05/2024 10:01 AM EDT [facility] Comment:Auto resulted. Urine Urine specimen obtained by clean catch procedure / Unknown Non-blood Collection / Unknown 09/03/2024 2:00 PM EDT 09/04/2024 9:08 AM EDT us Jonh Benitez MD LAB URINE ORDERABLES Final Resu lt Performing Organization Address [facility]/ZIP Co de Phone Number [facility] [address] [place] [address], [place] [phone] documented in this encounter Visit Diagnoses Diagnosis Urinary tract infection, site not specified documented in this encounter Additional Health Concerns Assessment Noted Time PHQ-9 Depression Total Score: 0 07/28/19 9:05 AM EDT documented as of this encounter Care Teams Hand Wrapper Operator Relationship Specialty Start Date End Date Scott Cooper MD [address] [place] [address] PCP - General Internal Medicine 04/05/24 documented as of this encounter
--- OUTSIDE RECORDS SUMMARY | 2025-02-03 10:27 | XMS_ITS | Encounter Summary ---
Author Organization [facility] Address [address] [place] [address] Care Team Providers Care Broke Man Name Role Phone Scott Cooper MD Primary Care Provider [phone] Encounter Details Date Type Department Care Team (Late st Contact Info) Description 09/04/2024 Lab Requisition [facility] - Main Lab 299 [facility] [place] [address] Jonh Benitez MD [address] [place] [address] Encounter for other general examination Social History [...] 2:30 PM EST Office Visit Endocrinology - [place] [address] [place], [place] [phone] Sobeida Hoff PA [address] [place] [address] 02/13/2025 3:15 PM EST Office Visit Internal Medicine - [address] [phone] Scott Cooper MD [address] [place] [address] documented as of this encounter Procedures Procedure [...] LAB HEMETOLOGY METHOD 09/04/2024 10:32 AM EDT [facility] Lymphocytes % 24.0 % LAB HEMETOLOGY METHOD 09/04/2024 10:32 AM EDT [facility] Monocytes % 12.0 % LAB HEMETOLOGY METHOD 09/04/2024 10:32 AM EDT [facility] Eosinophils % 2.0 % LAB HEMETOLOGY METHOD 09/04/2024 10:32 AM [facility] Basophils % 1.0 % LAB HEMETOLOGY METHOD 09/04/2024 10:32 AM [facility] Myelocytes % 1.0(H) % LAB HEMETOLOGY METHOD 09/04/2024 10:32 AM [facility] Neutrophils Absolute Manual 4.33 1.50 - 7.00 K/mcL LAB HEMETOLOGY METHOD 09/04/2024 10:32 AM [facility] Lymphocytes Absolute 1.70 1.00 - 5.00 K/mcL LAB HEMETOLOGY METHOD 09/04/2024 10:32 AM [facility] Monocytes Absolute Manual 0.85 0.20 - 1.00 K/mcL LAB HEMETOLOGY METHOD 09/04/2024 10:32 AM [facility] Eosinophils Absolute Manual 0.14 0.00 - 0.50 K/mcL LAB HEMETOLOGY METHOD 09/04/2024 10:32 AM [facility] Basophils Absolute Manual 0.07 0.00 - 0.20 K/mcL LAB HEMETOLOGY METHOD 09/04/2024 10:32 AM [facility] Myelocytes Absolute Manual 0.07(H) 0.00 - 0.00 K/mcL LAB HEMETOLOGY METHOD 09/04/2024 10:32 AM [facility] Rbc Morphology Consistent with indices Consistent with indices, Normal for [place] LAB HEMETOLOGY METHOD 09/04/2024 10:32 AM [facility] Comment:RBC: Morphology agre es with CBC Platelet Morphology - WAM See Note(A) Normal LAB HEMETOLOGY METHOD 09/04/2024 10:32 AM [facility] Comment:PLT: Normal Blood Venous blood specimen / Unknown Venipuncture / Unknown 09/04/2024 6:31 AM EDT 09/04/2024 8:53 AM EDT us Jonh Benitez MD LAB BLOOD ORDERABLES Final Resu lt [facility] [address] [place] [address], * (ABNORMAL) CBC auto differential (09/04/2024 6:31 AM EDT) WBC 7.1 4.8 - 10.8 K/mcL LAB HEMETOLOGY METHOD 09/04/2024 10:32 AM EDT [facility] RBC 3.50(L) 4.50 - 5.50 M/mcL LAB HEMETOLOGY METHOD 09/04/2024 10:[facility] Hemoglobin 10.3(L) 13.5 - 17.5 g/dL LAB HEMETOLOGY METHOD 09/04/2024 10:32 AM T [facility] Hematocrit 29.8(L) 42.0 - 54.0 % LAB HEMETOLOGY METHOD 09/04/2024 10:32 AM EDT [facility] MCV 84.9 79.0 - 98.0 FL LAB HEMETOLOGY METHOD 09/04/2024 10:32 AM EDT [facility] MCH 29.3 27.0 - 32.0 pcg LAB HEMETOLOGY METHOD 09/04/2024 10:32 AM EDT [facility] MCHC 34.6 32.0 - 37.0 g/dL LAB HEMETOLOGY METHOD 09/04/2024 10:32 AM EDT [facility] RDW 14.6 11.0 - 15.0 % LAB HEMETOLOGY METHOD 09/04/2024 10:32 AM [facility] Platelets 247 130 - 400 K/mcL LAB HEMETOLOGY METHOD 09/04/2024 10:32 AM EDT [facility] MPV 10.1 7.0 - 11.0 FL LAB HEMETOLOGY METHOD 09/04/2024 10:32 AM EDT [facility] NRBC 0.0 <1.0 % LAB HEMETOLOGY METHOD 09/04/2024 10:32 AM EDT [facility] NRBC Absolute 0.00 <0.10 K/mcL LAB HEMETOLOGY METHOD 09/04/2024 10:32 AM EDT [facility] Blood Venous blood specimen / Unknown Venipuncture / Unknown 09/04/2024 6:31 AM EDT 09/04/2024 8:53 AM EDT Jonh Benitez MD LAB BLOOD ORDERABLES Final Resu lt Performing Organization Address [facility]/ZIP Co de Phone Number [facility] [address] [place] [address], * Magnesium (09/04/2024 6:31 AM EDT) Magnesium 1.9 1.9 - 2.6 mg/dL LAB CHEMISTRY METHOD 09/04/2024 10:59 AM EDT [facility] Blood Venous blood specimen / Unknown Venipuncture / Unknown 09/04/2024 6:31 AM EDT 09/04/2024 8:53 AM EDT Jonh Benitez MD LAB BLOOD ORDERABLES Final Resu lt [facility] [address] [place] [address], [place] [phone] * (ABNORMAL) Comprehensive metabolic panel (09/04/2024 6:31 AM EDT) Sodium 138 133 - 145 mmol/L LAB CHEMISTRY METHOD 09/04/2024 11:08 AM EDT [facility] Potassium 4.2 3.5 - 5.5 mmol/L LAB CHEMISTRY METHOD 09/04/2024 11:08 AM [facility] Chloride 103 96 - 110 mmol/L LAB CHEMISTRY METHOD 09/04/2024 11:08 AM [facility] CO2 30 21 - 32 mmol/L LAB CHEMISTRY METHOD 09/04/2024 11:08 AM [facility] Anion Gap 5 3 - 11 LAB CHEMISTRY METHOD 09/04/2024 11:08 AM [facility] Glucose 110(H) 70 - 100 mg/dL LAB CHEMISTRY METHOD 09/04/2024 11:08 AM [facility] BUN 14 5 - 25 mg/dL LAB CHEMISTRY METHOD 09/04/2024 11:08 AM [facility] Creatinine 0.84 0.70 - 1.30 mg/dL LAB CHEMISTRY METHOD 09/04/2024 11:08 AM [facility] eGFR 92 >=60 mL/min/1. 73m2 LAB CHEMISTRY METHOD 09/04/2024 11:08 AM [facility] Comment:Calculation based on the Chronic Kidney Disease Epidemiology Collaboration (CKD-EPI) equation refit without adjustment for race. BUN/Creatinine Ratio 16.7 LAB CHEMISTRY METHOD 09/04/2024 11:08 AM [facility] Calcium 9.1 8.5 - 10.5 mg/dL LAB CHEMISTRY METHOD 09/04/2024 11:08 AM [facility] AST (SGOT) 66(H) 10 - 42 unit/L LAB CHEMISTRY METHOD 09/04/2024 11:08 AM [facility] ALT (SGPT) 20 10 - 60 unit/L LAB CHEMISTRY METHOD 09/04/2024 11:08 AM [facility] Alkaline Phosphatase 98 42 - 121 unit/L LAB CHEMISTRY METHOD 09/04/2024 11:08 AM [facility] Total Protein 6.1 6.0 - 8.0 g/dL LAB CHEMISTRY METHOD 09/04/2024 11:08 AM EDT [facility] Albumin 3.0(L) 3.2 - 5.0 g/dL LAB CHEMISTRY METHOD 09/04/2024 11:08 AM EDT [facility] Total Bilirubin 0.6 0.0 - 1.4 mg/dL LAB CHEMISTRY METHOD 09/04/2024 11:08 AM EDT [facility] Blood Venous blood specimen / Unknown Venipuncture / Unknown 09/04/2024 6:31 AM EDT 09/04/2024 8:53 AM EDT us Jonh Benitez MD LAB BLOOD ORDERABLES Final Resu lt [facility] [address] [place] [address], documented in this encounter Visit Diagnoses Diagnosis Encounter for other general examination documented in this encounter Additional Health Concerns Assessment Noted Time PHQ-9 Depression Total Score: 0 07/28/19 25 9:05 AM EDT documented as of this encounter Care Teams Broke Man Relationship Specialty Start Date End Date Scott Cooper MD [address] [place] [id number] PCP - General Internal Medicine 04/05/24 documented as of this encounter
== END 2025-02-03 10:02 | disposition home or self-care (01) ==
LOC: HO.HSM 09:28
PROVIDERS: PCP Physician Assistant; Visit Provider Nurse Practitioner
DX: G20.C Parkinsonism, unspecified (principal); G31.84 Mild cognitive impairment of uncertain or unknown etiology
CPT/HCPCS: 99212